=== PATIENT | female | born 1940 | race Caucasian/White ===

== ENCOUNTER 2016-06-13 14:11 | Observation (INO) | payer MEDICARE, OTHER ==
[2016-06-13] VITALS (9 sets, daily range): BP systolic 111–140; BP diastolic 42–99; PULSE 70–78; RESP 15–19; O2SAT 82–98
[~2016-06-13] VITALS: Ht 167.6 cm; Wt 94.3 kg
[~2016-06-13 14:11] MED LIST: ALBU8.5H2 INHALATION; DILT30TA30 PO; DIPH50C PO; DULO20CA18 PO; FLUC150T48 PO; FLUT1DIS5 INHALATION; GABA-502 PO; HYDR4TAB PO; LEVO50TA6 PO; LISI-571 PO; MONT10TA23 PO; PRED-508 PO; TRAZ150T72 PO; WARF5TAB7 PO
--- NOTE | 2016-06-13 14:25 | ED.REPORT ---
HPI-Altered Mental Status Date of Service Jun 13, 2016 ED Provider: Ankur John MD Pt is a 75 y.o. female with a hx of COPD, CHF, DM, and A-fib who presents to the ED via EMS from [facility] with altered mental status onset unclear. Staff described the pt as increasingly "sleepy". Pt is on numerous sedating medications including a Fentanyl patch, PRN Dilaudid, diphenhydramine, hydroxyzine, and trazodone. The Fentanyl patch that the pt is currently wearing has been on for three days. The pt states that her medications are handled by [facility] staff and denies any recent medication changes. She therefore does not believe that medication mistakes or noncompliance are involved in her condition. Pt is slow to respond to questions and when asked if she is in pain she states her right hip hurts, however she describes this pain as chronic. Pt is a poor historian due to her current mental status. Nursing Notes Stated Complaint: ALTERED LOC Chief Complaint: Neuro Symptoms/ Deficits Nursing Notes Reviewed: Yes Allergies: Coded Allergies: methocarbamol (Verified Allergy, Unknown, BREAK OUT IN HIVES AND ITCH ALL OVER, 08/02/15) ipratropium (Verified Adverse Reaction, Mild, dry mouth, 08/02/15) Scheduled Diltiazem (Cardizem) 30 Mg Tablet 30 MG PO ACHS Duloxetine (Duloxetine) 20 Mg Capsule.dr 20 MG PO BID Fluticasone/Salmeterol (Advair 500-50 Diskus) 1 Each Disk.w.dev 1 PUFF INHALATION BID Gabapentin (Gabapentin) 300 Mg Capsule 600 MG PO QAM Gabapentin (Gabapentin) 300 Mg Capsule 1,200 MG PO HS Levothyroxine (Levothyroxine) 50 Mcg Tablet 50 MCG PO DAILY Lisinopril (Lisinopril) 5 Mg Tablet 2.5 MG PO DAILY Montelukast (Montelukast) 10 Mg Tablet 10 MG PO DAILY Prednisone (Deltasone) 20 Mg Tablet 60 MG PO DAILY Take 3 tablets PO daily x 3 days, then Take 2.5 tablets PO daily x 5 days, then Take 2 tablets PO daily x 5 days, then Take 1.5 tablets PO daily x 5 days, then Take 1 tablet PO daily x 5 days, then Take 0.5 tablet PO daily x 5 days, then STOP Trazodone (Trazodone) 150 Mg Tablet 150 MG PO HS Warfarin Sodium (Warfarin Sodium) 5 Mg Tablet 5 MG PO DAILY Scheduled PRN Albuterol HFA (Proair HFA) 8.5 Gm Hfa.aer.ad 2 PUFFS INHALATION Q4H PRN PRN For Shortness of Breath Diphenhydramine Hcl (Benadryl) 50 Mg Capsule 100 MG PO BID PRN PRN For Congestion Fluconazole (Diflucan) 150 Mg Tablet 150 MG PO DAILY PRN PRN rash Hydromorphone (Hydromorphone) 4 Mg Tablet 4 MG PO BID PRN PRN Pain General Time Seen by MD: 14:17 Chief Complaint Decreased alertness Hx Obtained From: Patient Unable to Obtain Hx: Patient condition, Mental status Arrived By: Ambulance Sudden in Onset?: No Onset Occurred: Onset unknown Progression since Onset: Gradually worsening Recent Healthcare: No recent hospitalization, Recent doctor visit Past Medical History Past Medical History COPD A-fib Asthma Pneumonia Hiatal hernia UTI Reports: Congestive heart failure, Diabetes mellitus Past Surgical History Trigger finger release Cardiac ablation/cardioversion Reports: Hysterectomy Smoking History Former Smoker (quit 20 years ago) Social History Alcohol Use: 1-3 per week (1 glass of wine/week) Drug Use: Denies drug use Other Social History: Occupation lives in [facility] Ambulatory Status Independent Review of Systems Unable to Obtain ROS Patient condition, Mental status Constitutional: Reports: Lethargy Psychiatric: Reports: Change mental status Complete sys rev & neg: except as marked. Musculoskeletal: Reports: Joint pain (Right hip) Physical Exam Initial Vital Signs Vital Signs (First) Date Time Temp Pulse Resp B/P Pulse Ox O2 Delivery O2 Flow Rate FiO2 06/13/16 14:32 36.9 75 19 111/46 97 Nasal Cannula 4 Initial VS: Reviewed General/Constitutional: Well appearing, Well developed, Well hydrated, Well nourished, Not toxic appearing Alertness: Positive: Somnolent Slow to respond Poor historian Head / Eyes: Atraumatic, Normocephalic, PERRL (3mm) Neck: Atraumatic Respiratory / Chest: Atraumatic, No respiratory distress Wheezing / Retractions: Positive: Wheeze insp/exp diffuse Cardiovascular: Heart rate NL, Regular rhythm, Heart sounds NL Neurologic: Oriented X3 Mental Status: Positive: Somnolent No facial droop Abdomen: Atraumatic, Soft mild to moderate diffuse abdominal tenderness Interpretation & Diagnostics Lab Results Interpretation Result Diagram: 06/13/16 1430 06/13/16 1430 Test 06/13/16 14:30 06/13/16 14:55 06/13/16 15:10 White Blood Count 13.7th/mm3 (3.8-10.1) Red Blood Count 5.93mil/mm3 (3.90-5.20) Hemoglobin 13.7g/dL (12.0-15.6) Hematocrit 46.5% (35.0-46.0) Mean Corpuscular Volume 78.4fL (81-100) Mean Corpuscular Hemoglobin 23.1pg (27.0-35.0) Mean Corpuscular Hemoglobin Concent 29.5% (32.0-37.0) Red Cell Distribution Width 21.0% (12.3-15.4) Platelet Count 724bil/L (150-400) Neutrophils (%) (Auto) 77.1% (40-74) Lymphocytes (%) (Auto) 11.7% (14-46) Monocytes (%) (Auto) 7.4% (4-12) Eosinophils (%) (Auto) 2.6% (0-5) Basophils (%) (Auto) 0.9% (0-3) Prothrombin Time 22.7sec (8.1-12.5) Prothromb Time International Ratio 2.09ratio Sodium Level 138mEq/L (134-144) Potassium Level 5.0mEq/L (3.5-5.2) Chloride Level 97mEq/L (97-108) Carbon Dioxide Level 28mmol/L (18-29) Blood Urea Nitrogen 23mg/dL (8-27) Creatinine 0.79mg/dL (0.57-1.00) Estimat Glomerular Filtration Rate 101mL/min (>59) Glucose Level 111mg/dL (60-99) Calcium Level 9.2mg/dL (8.5-10.1) Total Bilirubin 0.2mg/dL (0.0-1.2) Aspartate Amino Transf (AST/SGOT) 10U/L (0-50) Alanine Aminotransferase (ALT/SGPT) 5U/L (0-32) Alkaline Phosphatase 136U/L (25-165) Total Protein 7.0g/dL (6.4-8.4) Albumin 4.1g/dL (3.4-5.0) Urine Color Yellow (YELLOW) Urine Appearance Hazy (CLEAR,HAZY) Urine pH 5.0 (5.0-8.0) Urine Specific [place] 1.030 (1.003-1.035) Urine Protein Negativemg/dL (NEG,TRACE) Urine Glucose (UA) Negativemg/dL (NEGATIVE) Urine Ketones Negativemg/dL (NEGATIVE) Urine Occult Blood Negative (NEGATIVE) Urine Nitrite Negative (NEGATIVE) Urine Bilirubin Negative (NEGATIVE) Urine Urobilinogen Normalmg/dL (NORMAL) Urine Leukocyte Esterase Negative (NEGATIVE) Urine RBC 0-2/hpf (0-2) Urine WBC 0-5/hpf (0-5) Urine Epithelial Cells Occasional/hpf (NONE-MOD) Urine Crystals None seen (NONE SEEN) Urine Bacteria Few/hpf (NONE-FEW) Urine Hyaline Casts Occasional/lpf (NONE) Urine Granular Casts None seen (NONE SEEN) Urine Waxy Casts None seen (NONE SEEN) Urine Red Blood Cell Casts None seen (NONE SEEN) Urine White Blood Cell Casts None seen (NONE SEEN) Urine Mucus Present (None Seen) Urine Trichomonas None seen (NONE SEEN) Urine Yeast None (NONE SEEN) Urinalysis Comment None Urine Culture Reflexed Not indicated Ammonia 17ug/dL (18-53) ECG Interpretation ECG Interpretation: Prolonged NC RBBB No acute change Time: 15:02 Interpreted by: ED physician Normal ECG Interpretation: Normal rate (79), Normal sinus rhythm Drug Screen / Level Interp Urine positive opiate, Urine positive THC X-Ray Chest Interpretation Chest Xray Interpretation: IMPRESSION: Mild increased pulmonary vascularity. Dictated by: Adriane Hodges M.D. on 06/13/2016 at 15:45 Approved by: Adriane Hodges M.D. on 06/13/2016 at 15:46 Interpretation / Wet Read by: Interpret - Radiologist CT Head Interpretation IMPRESSION: 1. No acute intracranial process. 2. Moderate atrophy and chronic microvascular ischemic changes. Dictated by: Adriane Hodges M.D. on 06/13/2016 at 15:54 Approved by: Adriane Hodges M.D. on 06/13/2016 at 15:55 Interpretation / Wet Read by: Interpret - Radiologist Re-Eval/Medical Decision Med Decision/Clinical Course 75 year old with altered mental status. On multiple sedating meds, nothing is new and she does not self-administer meds. Had a fentalnyl patch on on arrival, it was 3 days old, there was no other patch and we removed the one she had. Thrombocytosis has been seen before, has a mild leukocytosis also. Elected not to give narcan, do not want to precipitate withdrawal. Abd tender but mildly, imaged with CT given ALOC. CT pending at present, will admit to hospitalist for obs unless CT of abd suggests need for other treatment. Source of Hx: Old records Re-Evaluation/Progress : Time of Eval: 16:56 Patient Status: Condition improved Re-Evaluation/Progress Note: Pt rechecked, who is resting comfortably and more alert. Additional history and physical exam are obtained. The pt denies pain at this time but her abdomen is tender on physical exam. She is informed of her lab results and radiology and the need for CT and possible admission are discussed. Consultation : Referral / Consult Name: Gilberto Carlson MD Consulted With: Hospitalist Call Returned at: 17:40 [employer] Art Teacher: Agrees with eval, Agrees with plan, Accepts admit Note: Spoke with Dr. Carlson, hospitalist, regarding pt's case. Dr. Carlson agrees with the evaluation and agrees to admit the pt. Counseled Regarding: Diagnosis, Lab results, Need for admission Patient Discharge & Departure Impression: Primary Impression: Altered mental status Altered mental status type: unspecified Qualified Code: R41.82 - Altered mental status, unspecified Disposition: ADMITTED TO HOSPITAL Discharge Condition All VS Reviewed: Yes Condition: Improved Referrals: Jasen Pepper MD (PCP) Ghassan Attestation Portions of this note were transcribed by Susan Ray. Dr. Dora Gardiner personally performed the history, physical exam and medical decision-making; I reviewed and confirmed the accuracy of the information in the transcribed note. Signed by: Ghassan Staton, 06/13/16 and 1648 Portions of this note were transcribed by Radha Marte. IDr. John personally performed the history, physical exam and medical decision-making; I reviewed and confirmed the accuracy of the information in the transcribed note. Signed by: Ghassan Branch, 06/13/16 and 1743. copies to: Jasen Pepper MD, Donald L MD Jun 13, 2016 14:25 SUSAN RAY Jun 13, 2016 14:34 RADHA MARTE Jun 13, 2016 17:02
[2016-06-13] MEDS ORDERED: Albuterol-Ipratropium 3 mL Inhalation Solution NEB ONE (14:30)
[2016-06-13 15:04] LABS: BASOPHILS % (AUTO) 0.9 % (0-3); EOSINOPHILS % (AUTO) 2.6 % (0-5); MONOCYTES % (AUTO) 7.4 % (4-12); Mean Corpuscular Hemoglobin 23.1 pg (27.0-35.0); Mean Corpuscular Volume 78.4 fL (81-100); NEUTROPHILS % (AUTO) 77.1 % (40-74); Platelet Count 724 bil/L (150-400)
[2016-06-13 15:11] LABS: APPEARANCE,URINE HAZY (CLEAR,HAZY); COLOR,URINE YELLOW (YELLOW); OCCULT BLOOD,URINE NEGATIVE (NEGATIVE); UROBILINOGEN,URINE NORMAL (NORMAL)
[2016-06-13 15:18] LABS: INR 2.09 ratio
--- NOTE | 2016-06-13 15:48 | DRSVH ---
PROCEDURE: X-RAY CHEST ONE VIEW, PORTABLE ([id number]) INDICATIONS: altered mental status TECHNIQUE: One view of the chest was acquired. COMPARISON: [facility], CR, XR CHEST 2VW, 07/11/2015, 10:47. FINDINGS: Surgical changes and devices: None. Lungs and pleura: No pleural effusions or pneumothorax. Mild increased pulmonary vascularity is pres ent. Mediastinum: Mediastinal contours appear normal. Heart size is normal. Bones and chest wall: No suspicious bony lesions. Overlying soft tissues appear unremarkable. IMPRESSION: Mild increased pulmonary vascularity. Dictated by: Adriane Hodges M.D. on 06/13/2016 at 15:45 Approved by: Adriane Hodges M.D. on 06/13/2016 at 15:46
--- NOTE | 2016-06-13 15:57 | DRSVH ---
PROCEDURE: CT BRAIN WITHOUT CONTRAST ([id number]) INDICATIONS: altered mental status TECHNIQUE: Noncontrast 4.5 mm thick angled axial sections acquired from the foramen magnum to the vertex, with c oronal reformats. COMPARISON: None. FINDINGS: Image quality: Excellent. CSF spaces: Basal cisterns are patent. No extra-axial fluid collections. The ventricles are symmet cayla in size and shape. Brain: No intracranial bleeds or masses. There is cerebral volume loss for age, with resultant vent ricular and sulcal prominence. There are periventricular and deep white matter chronic small vessel ischemic changes. There is intracranial internal carotid artery atherosclerosis. Skull and face: Calvarium and visualized facial bones appear intact, without suspicious lesions. Sinuses: Visualized sinuses and mastoids are clear. IMPRESSION: 1. No acute intracranial process. 2. Moderate atrophy and chronic microvascular ischemic changes. Dictated by: Adriane Hodges M.D. on 06/13/2016 at 15:54 Approved by: Adriane Hodges M.D. on 06/13/2016 at 15:55
[2016-06-13] MEDS ORDERED: IPRA4AER IH (17:49)
[2016-06-13] MEDS ORDERED: DILT180C83 PO (17:50)
[2016-06-13] MEDS ORDERED: DOCU-41 PO (17:51)
[2016-06-13] MEDS ORDERED: FENT-2 TRANSDERM (17:53)
[2016-06-13] MEDS ORDERED: [UNRECOGNIZED DRUG - CODE] PO (17:54)
[2016-06-13] MEDS ORDERED: NYST15PO5 TOPICAL (17:54)
--- NOTE | 2016-06-13 17:55 | DRSVH ---
PROCEDURE: CT ABDOMEN AND PELVIS WITH CONTRAST ([id number]) INDICATIONS: altered mental status, abd tenderness TECHNIQUE: After the administration of intravenous contrast, 5 mm thick sections acquired from the diaphragm to the symphysis. 5 mm coronal and sagittal reformats were acquired. For radiation dose reduction, the following was used: automated exposure control, adjustment of mA and/or kV according to patient siz e. COMPARISON: None. FINDINGS: Image quality: Excellent. ABDOMEN: Lung bases: 20 mm AP by 12 mm transverse spiculated nodular opacity is noted in the right lower lobe. No priors are available for comparison. Solid organs: Liver and spleen are normal in size. Gallbladder demonstrates multiple luminal stones without wall thickening. Biliary system is non dilated. Pancreas enhances normally. No adrenal nod ules. Kidneys demonstrate normal size and enhancement, without hydronephrosis. Peritoneum and bowel: Bowel loops demonstrate normal wall thickness and caliber. No free fluid or a ir. Moderate stool is present without obstruction. Nodes and vessels: No retroperitoneal or mesenteric adenopathy by size criteria. Aorta and inferior vena cava are normal in size. Miscellaneous: No ventral hernias. PELVIS: Genitourinary: Bladder is collapsed limiting evaluation in addition, it is not well characterized se condary to metallic streak artifact from right hip arthroplasty. Miscellaneous: No inguinal hernias or adenopathy. Bones: No suspicious bony lesions. No vertebral body compression fractures. IMPRESSION: 1. Spiculated nodular opacity within the right lobe as above. No priors are available for comparison. Overall morphology is concerning for neoplasm. If prior studies become available for comparison, an addendum will be issued. Otherwise, consideration for PET scan or biopsy is recommended. 2. Prominent stool most suggestive of constipation. No obstruction. 3. Cholelithiasis without imaging evidence of cholecystitis. Dictated by: Adriane Hodges M.D. on 06/13/2016 at 17:44 Approved by: Adriane Hodges M.D. on 06/13/2016 at 17:54
[2016-06-13] MEDS ORDERED: METF500T4 PO (17:57)
[2016-06-13] MEDS ORDERED: MONT10TA23 PO (17:58)
[2016-06-13] MEDS ORDERED: POLY17PO6 PO (17:59)
[2016-06-13] MEDS ORDERED: BACI28.4 TP (18:00)
[2016-06-13] MEDS ORDERED: HYDR-656 PO (18:02)
[2016-06-13] MEDS ORDERED: DIPH25CA6 PO (18:06)
[2016-06-13] MEDS ORDERED: Alum-Mag Hydrox-Simeth 30 mL Suspension PO PRN (18:15)
[2016-06-13] MEDS ORDERED: Ondansetron 2 mg/mL 2 mL Inj IVPUSH PRN (18:15)
[2016-06-13] MEDS ORDERED: Polyethylene Glycol (PEG) 17 Gm Powder PO PRN (18:15)
[2016-06-13] MEDS ORDERED: NYSTATIN TOPICAL PRN (18:20)
[2016-06-13] MEDS ORDERED: Albuterol HFA 60 Puff 8 Gm Inhaler INHALATION PRN (18:20)
[2016-06-13] MEDS ORDERED: Albuterol-Ipratropium 3 mL Inhalation Solution NEB PRN (18:25)
--- NOTE | 2016-06-13 18:39 | PCM.HPMED ---
Subjective Date of Service Jun 13, 2016 Primary Provider: Admitting Physician: Gilberto Carlson MD Primary Care Physician: Jasen Pepper MD Attending Physician: Gilberto Carlson MD Admit Status: From the Emergency Department, 23-Hour Observation Chief Complaint: Altered mental status/1 day History of Present Illness: Thelma is a 75-year-old lady with past medical history of COPD/asthma, DM, and A- fib on warfarin, osteoarthritis of right hip was brought in from [facility] due to altered mental status of 1 day. Assisted living staff noted the patient is sleepy but arousable the whole day which prompted referral to emergency room. Patient has osteoarthritis mainly on the right hip status post replacement and she takes multiple narcotics and sedating medications for the pain. Her medication list includes Fentanyl patch, PRN Dilaudid, diphenhydramine, hydroxyzine, and trazodone. In the emergency room patient was lethargic but arousable. Pupils slightly constricted. Fentanyl patch which was on day 3 was removed by ED. Urine tox positive for marijuana, opiates, oxycodone. CT brain negative. Urinalysis unremarkable. CT of abdomen negative for acute pathology except constipation. CT abdomen done due to some tenderness on lower abdomen on exam. Patient denies fever. Patient states she has been having worsening of cough for the last 1 week. She does not use oxygen. Review of Systems: Unable to obtain due to mental status Allergies Coded Allergies: Cephalosporins (Verified Allergy, Mild, 06/13/16) Proton Pump Inhibitors (Verified Allergy, Mild, 06/13/16) chlorhexidine (Verified Allergy, Mild, 06/13/16) saccharin (Verified Allergy, Mild, 06/13/16) methocarbamol (Verified Allergy, Unknown, BREAK OUT IN HIVES AND ITCH ALL OVER, 08/02/15) ipratropium (Verified Adverse Reaction, Mild, dry mouth, 08/02/15) Home Medications Diltiazem (Cardizem) 180 Mg ER Tablet HS Duloxetine (Duloxetine) 20 Mg Capsule.dr 20 MG PO HS Fluticasone/Salmeterol (Advair 500-50 Diskus) 1 Each Disk.w.dev 1 PUFF INHALATION BID Fentanyl 75mcg Q3d Gabapentin (Gabapentin) 300 Mg Capsule 600 MG PO QAM ( ?300mg tid) Gabapentin (Gabapentin) 300 Mg Capsule 1,200 MG PO HS Levothyroxine (Levothyroxine) 50 Mcg Tablet 50 MCG PO DAILY Lisinopril (Lisinopril) 5 Mg Tablet 2.5 MG PO DAILY Montelukast (Montelukast) 10 Mg Tablet 10 MG PO DAILY Trazodone (Trazodone) 150 Mg Tablet 150 MG PO HS Warfarin Sodium (Warfarin Sodium) 5 Mg Tablet 5 MG PO DAILY Scheduled PRN Albuterol HFA (Proair HFA) 8.5 Gm Hfa.aer.ad 2 PUFFS INHALATION Q4H PRN PRN For Shortness of Breath Diphenhydramine Hcl (Benadryl) 50 Mg Capsule 100 MG PO BID PRN PRN For Congestion Fluconazole (Diflucan) 150 Mg Tablet 150 MG PO DAILY PRN PRN rash Hydromorphone (Hydromorphone) 4 Mg Tablet 4 MG PO BID PRN PRN Pain PMH per prior H&P COPD A-fib Diabetes mellitus type II Obstructive sleep apnea 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 patient is lying comfortably in hospital bed, lethargic HEENT: Head is normocephalic atraumatic, Pupils equal and reactive, extraocular movements intact, Lungs bibasilar crackles and rhonchi Heart regular rate and rhythm without murmurs gallops or rubs Abdomen mild RUQ abdominal tenderness Extremities +1 pedal edema Psych lethargic and not oriented to person and time. Oriented to place Neuro cranial nerves II through XII are grossly intact. Motor grossly intact. Unable to lift right leg due to right hip pain Lymph: There is no lymphadenopathy appreciated in the cervical supra infraclavicular regions : no lopez Lab and Diagnostics Result Diagram: 06/13/16 1430 06/13/16 1430 X-Rays, CTs and MRIs PROCEDURE: CT ABDOMEN AND PELVIS WITH CONTRAST ([id number]) INDICATIONS: altered mental status, abd tenderness IMPRESSION: 1. Spiculated nodular opacity within the right lobe as above. No priors are available for comparison. Overall morphology is concerning for neoplasm. If prior studies become available for comparison, an addendum will be issued. Otherwise, consideration for PET scan or biopsy is recommended. 2. Prominent stool most suggestive of constipation. No obstruction. 3. Cholelithiasis without imaging evidence of cholecystitis. Dictated by: Adriane Hodges M.D. on 06/13/2016 at 17:44 PROCEDURE: CT BRAIN WITHOUT CONTRAST ([id number]) INDICATIONS: altered mental status IMPRESSION: 1. No acute intracranial process. 2. Moderate atrophy and chronic microvascular ischemic changes. Dictated by: Adriane Hodges M.D. on 06/13/2016 at 15:54 Assessment & Plan Thelma is a 75-year-old lady with past medical history of COPD/asthma, DM, and A- fib on warfarin, osteoarthritis of right hip was brought in from [facility] due to altered mental status # Altered mental status,acute ,poa -Likely due to narcotics and sedative medications. -Fentanyl patch in the emergency room. Hold narcotic pain medication for now -CT brain negative. Urinalysis unremarkable. Chest x-ray no infiltrates -NS at 100ml/h -Patient's mentation improving per ED. No need for Narcan -No lateralizing sign. will hold off MRI -Patient's COPD does not seem to be advanced. will hold off ABG. Will consider ABG and BiPAP if mentation worsens # Chronic COPD/asthma, no exacerbation -Continue home inhalers # Atrial fibrillation on warfarin -Continue anticoagulation. CT brain negative for any bleed # Right lower lobe nodule in lung concerning for cancer -Dedicated CT chest with contrast outpatient #Diabetes -Sliding-scale for now #Osteoarthritis -Tylenol only for now Full code per patient Observation status Possible discharge tomorrow if continues to improve Gilberto Carlson MD Jun 13, 2016 18:39
--- NOTE | 2016-06-13 19:20 | PCM.PHAPRO ---
Progress Date of Service: Jun 13, 2016 Altered mental status/1 day Dx: Afib PMH: COPD/asthma, DM, OA, CHF OPERATIONS SUPPORT MANAGER dose: 5mg daily INR goal 2-3 INR 2.09 (at goal) give warfarin 5mg tonight per MD INR AM labs on 06/14 per pharmacy Caesar Agarwal PharmD Caesar Agarwal Jun 13, 2016 19:20
--- NOTE | 2016-06-13 19:35 | NUR ---
Admit MPC from ED Pt admitted on stretcher at 1835, A&O, denies pain. Pt oriented to room and facility. Denied having questions. VSS. Pt states to be on 3L of oxygen at home. Currently on 2L via MD sating 93% Bed in low position, upper rails up, call light in reach.
[2016-06-13] MEDS ORDERED: Albuterol 2.5 mg/3 mL Inhalation Solution NEB PRN (19:40)
[2016-06-13] MEDS: 0.9% Sodium Chloride 1,000 ML IV SCH (20:24)
[2016-06-13] MEDS: Diltiazem CD 180 mg ER24 Capsule PO SCH (20:25)
[2016-06-13] MEDS: DULoxetine 20 mg DR Capsule PO SCH (20:27)
[2016-06-13] MEDS: Albuterol-Ipratropium 120 Spray 4 Gm Inhaler INHALATION SCH (20:33)
[2016-06-14] VITALS (12 sets, daily range): BP systolic 112–166; BP diastolic 56–83; PULSE 59–97; RESP 16–20; O2SAT 90–97
[2016-06-14] MEDS: Albuterol-Ipratropium 120 Spray 4 Gm Inhaler INHALATION SCH ×4 (06:07→20:48)
[2016-06-14 07:09] LABS: BASOPHILS % (AUTO) 0.9 % (0-3); EOSINOPHILS % (AUTO) 5.2 % (0-5); MONOCYTES % (AUTO) 11.5 % (4-12); Mean Corpuscular Hemoglobin 23.4 pg (27.0-35.0); Mean Corpuscular Volume 75.9 fL (81-100); NEUTROPHILS % (AUTO) 57.2 % (40-74); Platelet Count 626 bil/L (150-400)
--- NOTE | 2016-06-14 07:20 | NUR ---
Mentation/Respiration,O2 Mental status appears improved, pt alert and orientedx3 throughout the night, answer questions properly, cooperative with care. Mild SOB at rest, no acute distress. Decreased lung sounds bilaterally, some wheezes posteriorly. NEB prn administeredx1 by RT this am. Hx COPD, Home O2 3l. Desat to low 80s briefly on O2 2l per nc while sleeping with mouth open, switch to Oxymask, SPO2 91-96% on O2 2l. [employer]BITR[employer]ARING OFFICE monitoring.
[2016-06-14 07:23] LABS: INR 2.01 ratio
[2016-06-14 07:43] LABS: Magnesium 2.1 mg/dL (1.6-2.6)
--- NOTE | 2016-06-14 08:01 | PCM.PHAPRO ---
Progress Date of Service: Jun 14, 2016 Warfarin dosing Date Jun 14-May INR 2.09. 2.01 INR change Warf Dose 5mg 5mg A/ INR is therapeutic today. P/ Continue with same dose of warfarin 5mg today and re-evaluate tomorrow with AM labs. Juan Del Rio Jun 14, 2016 08:01
[2016-06-14] MEDS: Polyethylene Glycol (PEG) 17 Gm Powder PO SCH (08:58)
[2016-06-14] MEDS: 0.9% Sodium Chloride 1,000 ML IV SCH (08:58)
[2016-06-14] MEDS: Bacitracin Ointment Packet TOPICAL SCH (09:00)
--- NOTE | 2016-06-14 12:36 | NUR ---
STEPHANY explained and signed. Copy of STEPHANY and Medicare self administered medication information provided to pt.
--- NOTE | 2016-06-14 13:50 | NUR ---
Social Work-initial assessment/Readiness for Discharge: Data:See initial assessment. Pt is a 75 y/o female who was admitted on 06/13/16 for AMS per H&P. Pt's insurance is [employer] and [employer] [place] PCP is Jasen Pepper MD. EMR Reviewed. Pt's readmission score is 2-no risk. Per morning rounds pt's condistion is improving and she is likely to discharge SW met with pt at bedside to discuss discharge planning, SW role explained. Pt is alert and oriented x3. Pt resides at [facility] where pt remains independent with basic ADLs. Pt uses a 4ww at baseline and does not drive. Pt has history with HH, she cannot recall which agency. Pt has history with [facility]. Pt has not completed DPOA/advanced directive and SW provided information to review and complete. Pt has no half-way care or VA benefits. Pt's sister to provide transport home at discharge. SW contacted [facility] to update them and they stated that [facility] pt can return and they will not need to do bedside assessment if hospitalization is less than 72 hours. No needs assessed at this time. SW provided phone number and plan on white board in room. SW will continue to follow. Assessment:Pt who resides at [facility] and can return. Plan:Pt to likely discharge home to [facility] via POV. No needs assessed. SW will continue to follow. Addendum: 06/14/16 at 1359 by ARNOLD JAY Amended: Links added.
--- NOTE | 2016-06-14 14:42 | PCM.PNMED ---
Subjective Date of Service Jun 14, 2016 Subjective Patient alert and oriented 3 today. She states she does not know why she was transferred to the emergency room. She has some worsening of cough for the last 1 week. Denies fever. Exam Vital Signs Vital Sign - Last Date Time Temp Pulse Resp B/P Pulse Ox O2 Delivery O2 Flow Rate FiO2 06/14/16 12:47 36.4 82 20 166/71 91 Room Air 06/14/16 05:39 2.00 Intake and Output 06/13/16 06/13/16 06/14/16 Cumulative From/Thru 15:00 23:00 07:00 06/13/16 14:32 - 06/14/16 05:39 Intake Total 812 ml 812 ml Output Total 1000 ml 1000 ml Balance -188 ml -188 ml Intake Oral 200 ml 200 ml IV Total 612 ml 612 ml Output Urine Total 1000 ml 1000 ml Exam Gen. patient is lying comfortably in hospital bed, alert and oriented 3 HEENT: Head is normocephalic atraumatic, Pupils equal and reactive, extraocular movements intact, Lungs bibasilar crackles and rhonchi Heart regular rate and rhythm without murmurs gallops or rubs Abdomen no tenderness Extremities +1 pedal edema Psych lethargic and not oriented to person and time. Oriented to place Neuro cranial nerves II through XII are grossly intact. Motor grossly intact. Unable to lift right leg due to right hip pain Lymph: There is no lymphadenopathy appreciated in the cervical supra infraclavicular regions : lopez placed yesterday. will remove IVs and Medications Medications Reviewed: Medications were reviewed in detail Lab and Diagnostics Result Diagram: 06/14/16 0706/14/16 0701 X-Rays, CTs and MRIs PROCEDURE: CT ABDOMEN AND PELVIS WITH CONTRAST ([id number]) INDICATIONS: altered mental status, abd tenderness IMPRESSION: 1. Spiculated nodular opacity within the right lobe as above. No priors are available for comparison. Overall morphology is concerning for neoplasm. If prior studies become available for comparison, an addendum will be issued. Otherwise, consideration for PET scan or biopsy is recommended. 2. Prominent stool most suggestive of constipation. No obstruction. 3. Cholelithiasis without imaging evidence of cholecystitis. Dictated by: Adriane Hodges M.D. on 06/13/2016 at 17:44 PROCEDURE: CT BRAIN WITHOUT CONTRAST ([id number]) INDICATIONS: altered mental status IMPRESSION: 1. No acute intracranial process. 2. Moderate atrophy and chronic microvascular ischemic changes. Dictated by: Adriane Hodges M.D. on 06/13/2016 at 15:54 Assessment & Plan Thelma is a 75-year-old lady with past medical history of COPD/asthma, DM, and A- fib on warfarin, osteoarthritis of right hip was brought in from [facility] due to altered mental status # Altered mental status,acute ,poa. Resolved -Likely due to narcotics and sedative medications. -Fentanyl patch removed in the emergency room. Hold narcotic pain medication for now. restarted gabapentin today -CT brain negative. Urinalysis unremarkable. Chest x-ray no infiltrates -initially treated with NS at 100ml/h -Patient's mentation improved. No need for Narcan -No lateralizing sign. will hold off MRI -Patient's COPD does not seem to be advanced. will hold off ABG. Will consider ABG and BiPAP if mentation worsens # Chronic COPD/asthma, no exacerbation -Continue home inhalers # Atrial fibrillation on warfarin -Continue anticoagulation. CT brain negative for any bleed # Right lower lobe nodule in lung concerning for cancer -Dedicated CT chest with contrast outpatient #Diabetes -Sliding-scale for now #Osteoarthritis -Tylenol and gabapentin only for now Full code per patient Observation status Possible discharge tomorrow if continues to improve VTE Mechanical Devices: Intermittant Pneumatic CD, Venous Foot Pump Gilberto Carlson MD Jun 14, 2016 14:42
--- NOTE | 2016-06-14 19:05 | NUR ---
IV infiltrated IV infiltrated at 1630. Notified MD. MACHADO said if no IV meds for tonight, can leave IV out for possible D/C tomorrow.
[2016-06-14] MEDS: Diltiazem CD 180 mg ER24 Capsule PO SCH (20:49)
[2016-06-14] MEDS: DULoxetine 20 mg DR Capsule PO SCH (20:49)
[2016-06-15 01:07] VITALS: BP 161/77; PULSE 93; RESP 18; O2SAT 93
[2016-06-15 04:38] VITALS: BP 166/76; PULSE 73; RESP 20; O2SAT 94
[2016-06-15] MEDS: Bacitracin Ointment Packet TOPICAL SCH (09:03)
[2016-06-15] MEDS: Albuterol-Ipratropium 120 Spray 4 Gm Inhaler INHALATION SCH (09:04)
[2016-06-15] MEDS: Polyethylene Glycol (PEG) 17 Gm Powder PO SCH (09:04)
[2016-06-15 10:04] VITALS: BP 149/89; PULSE 87; RESP 18; O2SAT 94
[2016-06-15 10:17] VITALS: PULSE 92
--- NOTE | 2016-06-15 11:16 | PCM.DIMED ---
Discharge Instructions Date of Service June 15, 2016 Dates of Hospitalization Jun 13, 2016 at 17:49 Discharge Diagnosis Discharge Diagnosis # Altered mental status,acute ,poa. Resolved -Likely due to narcotics and sedative medications. -Fentanyl patch removed in the emergency room. Condition has improved - On discharge, it is recommended you discontinue use of Fentayl patch, using only as needed oral pain medications. # Chronic COPD/asthma, no exacerbation -Continue home inhalers # Atrial fibrillation on warfarin -Continue anticoagulation. CT brain negative for any bleeding of head # Right lower lobe nodule in lung concerning for cancer -Dedicated CT chest with contrast outpatient #Diabetes #Osteoarthritis -Tylenol and gabapentin for pain first - Then Dilaudid pills if pain does not respond. Diet No restrictions Activity Limited until seen by PCP Call your provider Other (recurrent altered mental status/confusion) Patient Instructions Follow-up Provider: Jasen Pepper MD Follow-up with PCP in: 1 week Flash Melendez DO June 15, 2016 11:16
--- NOTE | 2016-06-15 11:22 | NUR ---
SW - Discharge Data: Pt is on day 2 of hospitalization for AMS. EMR reviewed. Per EMR pt is medically cleared for discharge back to [facility], is up and independent in room. Sister will provide transport home via POV. SW met with pt and sister at bedside to confirm discharge plan. All updated and agreeable to plan. No further needs assessed. Assessment: Pt who resides at [facility] Plan: Pt to discharge home via POV. No further needs assessed. LEONARDO Ferrell
--- NOTE | 2016-06-15 11:24 | PCM.DC.MED ---
Discharge Summary Date of Service June 15, 2016 Dates of Hospitalization Date of Hospital Admission Jun 13, 2016 at 17:49 Date of Discharge: June 15, 2016 Providers: Admitting Physician: Gilberto Carlson MD Primary Care Physician: Jasen Pepper MD Attending Physician: Gilberto Carlson MD Diagnosis at Time of Discharge Diagnosis at Time of Discharge # Altered mental status,acute ,poa. Resolved -Likely due to narcotics and sedative medications. -Fentanyl patch removed in the emergency room. Condition has improved - On discharge, it is recommended you discontinue use of Fentayl patch, using only as needed oral pain medications. # Chronic COPD/asthma, no exacerbation -Continue home inhalers # Atrial fibrillation on warfarin -Continue anticoagulation. CT brain negative for any bleeding of head # Right lower lobe nodule in lung concerning for cancer -Dedicated CT chest with contrast outpatient #Diabetes #Osteoarthritis -Tylenol and gabapentin for pain first - Then Dilaudid pills if pain does not respond. Procedures XRay, CTs & MRIs PROCEDURE: CT ABDOMEN AND PELVIS WITH CONTRAST ([id number]) INDICATIONS: altered mental status, abd tenderness IMPRESSION: 1. Spiculated nodular opacity within the right lobe as above. No priors are available for comparison. Overall morphology is concerning for neoplasm. If prior studies become available for comparison, an addendum will be issued. Otherwise, consideration for PET scan or biopsy is recommended. 2. Prominent stool most suggestive of constipation. No obstruction. 3. Cholelithiasis without imaging evidence of cholecystitis. Dictated by: Adriane Hodges M.D. on 06/13/2016 at 17:44 PROCEDURE: CT BRAIN WITHOUT CONTRAST ([id number]) INDICATIONS: altered mental status IMPRESSION: 1. No acute intracranial process. 2. Moderate atrophy and chronic microvascular ischemic changes. Dictated by: Adriane Hodges M.D. on 06/13/2016 at 15:54 Brief History Thelma is a 75-year-old lady with past medical history of COPD/asthma, DM, and A- fib on warfarin, osteoarthritis of right hip was brought in from [place] assisted living due to altered mental status of 1 day. Assisted living staff noted the patient is sleepy but arousable the whole day which prompted referral to emergency room. Patient has osteoarthritis mainly on the right hip status post replacement and she takes multiple narcotics and sedating medications for the pain. Her medication list includes Fentanyl patch, PRN Dilaudid, diphenhydramine, hydroxyzine, and trazodone. In the emergency room patient was lethargic but arousable. Pupils slightly constricted. Fentanyl patch which was on day 3 was removed by ED. Urine tox positive for marijuana, opiates, oxycodone. CT brain negative. Urinalysis unremarkable. CT of abdomen negative for acute pathology except constipation. CT abdomen done due to some tenderness on lower abdomen on exam. Patient denies fever. Patient states she has been having worsening of cough for the last 1 week. She does not use oxygen. Hospital Course # Altered mental status,acute ,poa. Resolved -Likely due to narcotics and sedative medications. -Fentanyl patch removed in the emergency room. Condition has improved - On discharge, it is recommended you discontinue use of Fentayl patch, using only as needed oral pain medications. # Chronic COPD/asthma, no exacerbation -Continue home inhalers # Atrial fibrillation on warfarin -Continue anticoagulation. CT brain negative for any bleeding of head # Right lower lobe nodule in lung concerning for cancer -Dedicated CT chest with contrast outpatient #Diabetes #Osteoarthritis -Tylenol and gabapentin for pain first - Then Dilaudid pills if pain does not respond. Exam Vital Signs (Last) Date Time Temp Pulse Resp B/P Pulse Ox O2 Delivery O2 Flow Rate FiO2 06/15/16 10:17 92 06/15/16 10:04 37.0 18 149/89 94 Room Air 06/14/16 05:39 2.00 Test 06/13/16 14:30 06/13/16 14:55 06/13/16 15:10 06/14/16 07:01 Procalcitonin 0.03ng/mL (0.00-0.08) Thyroid Stimulating Hormone (TSH) 1.990uIU/mL (0.450-4.500) Urine Color Yellow (YELLOW) Urine Appearance Hazy (CLEAR,HAZY) Urine pH 5.0 (5.0-8.0) Urine Specific Anderson 1.030 (1.003-1.035) Urine Protein Negativemg/dL (NEG,TRACE) Urine Glucose (UA) Negativemg/dL (NEGATIVE) Urine Ketones Negativemg/dL (NEGATIVE) Urine Occult Blood Negative (NEGATIVE) Urine Nitrite Negative (NEGATIVE) Urine Bilirubin Negative (NEGATIVE) Urine Urobilinogen Normalmg/dL (NORMAL) Urine Leukocyte Esterase Negative (NEGATIVE) Urine RBC 0-2/hpf (0-2) Urine WBC 0-5/hpf (0-5) Urine Epithelial Cells Occasional/hpf (NONE-MOD) Urine Crystals None seen (NONE SEEN) Urine Bacteria Few/hpf (NONE-FEW) Urine Hyaline Casts Occasional/lpf (NONE) Urine Granular Casts None seen (NONE SEEN) Urine Waxy Casts None seen (NONE SEEN) Urine Red Blood Cell Casts None seen (NONE SEEN) Urine White Blood Cell Casts None seen (NONE SEEN) Urine Mucus Present (None Seen) Urine Trichomonas None seen (NONE SEEN) Urine Yeast None (NONE SEEN) Urinalysis Comment None Urine Culture Reflexed Not indicated Ammonia 17ug/dL (18-53) White Blood Count 9.8th/mm3 (3.8-10.1) Red Blood Count 5.18mil/mm3 (3.90-5.20) Hemoglobin 12.1g/dL (12.0-15.6) Hematocrit 39.3% (35.0-46.0) Mean Corpuscular Volume 75.9fL (81-100) Mean Corpuscular Hemoglobin 23.4pg (27.0-35.0) Mean Corpuscular Hemoglobin Concent 30.8% (32.0-37.0) Red Cell Distribution Width 20.3% (12.3-15.4) Platelet Count 626bil/L (150-400) Neutrophils (%) (Auto) 57.2% (40-74) Lymphocytes (%) (Auto) 25.0% (14-46) Monocytes (%) (Auto) 11.5% (4-12) Eosinophils (%) (Auto) 5.2% (0-5) Basophils (%) (Auto) 0.9% (0-3) Sodium Level 137mEq/L (134-144) Potassium Level 5.4mEq/L (3.5-5.2) Chloride Level 100mEq/L (97-108) Carbon Dioxide Level 29mmol/L (18-29) Blood Urea Nitrogen 15mg/dL (8-27) Creatinine 0.47mg/dL (0.57-1.00) Estimat Glomerular Filtration Rate 185mL/min (>59) Glucose Level 99mg/dL (60-99) Calcium Level 8.7mg/dL (8.5-10.1) Magnesium Level 2.1mg/dL (1.6-2.6) Total Bilirubin 0.4mg/dL (0.0-1.2) Aspartate Amino Transf (AST/SGOT) 9U/L (0-50) Alanine Aminotransferase (ALT/SGPT) 5U/L (0-32) Alkaline Phosphatase 112U/L (25-165) Total Protein 5.6g/dL (6.4-8.4) Albumin 3.5g/dL (3.4-5.0) Test 06/15/16 11:10 General: Alert, Oriented X3, Cooperative Mouth: Mucous Membr Moist/[place] Cardiovascular: Other Extremities: No cyanosis/clubbing/edma bilat Neurological: Grossly Neurologically Intact Discharge Medications Discharge Medications Albuterol/Ipratropium (Combivent Respimat Inhal [place]) 120 Spr/4 Gm Inhaler 1 PUFF IH QID (Reported) Bacitracin (Bacitracin Ointment) 28.4 Gm Oint...g. 1 APPLIC TP DAILY (Reported) Diltiazem ER (Diltiazem ER) 180 Mg Cap.er.24h 180 MG PO HS (Reported) Docusate Sodium (Colace) 100 Mg Capsule 100 MG PO BID (Reported) Duloxetine (Duloxetine) 20 Mg Capsule.dr 20 MG PO HS (Reported) Gabapentin (Gabapentin) 300 Mg Capsule 300 MG PO TID (Reported) Levothyroxine (Levothyroxine) 50 Mcg Tablet 25 MCG PO DAILY (Reported) Lisinopril (Lisinopril) 5 Mg Tablet 2.5 MG PO DAILY Prescribed by: CLEO FRANCO MD Metformin (Metformin) 500 Mg Tablet 500 MG PO DAILY (Reported) Montelukast (Montelukast) 10 Mg Tablet 10 MG PO HS (Reported) Polyethylene Glycol 3350 (Miralax) 17 Gm Powd.pack 17 GM PO DAILY (Reported) Trazodone (Trazodone) 150 Mg Tablet 300 MG PO HS (Reported) Warfarin Sodium (Warfarin Sodium) 5 Mg Tablet 5 MG PO DAILY (Reported) As needed Albuterol HFA (Proair HFA) 8.5 Gm Hfa.aer.ad 2 PUFFS INHALATION Q4H PRN PRN For Shortness of Breath (Reported) Fluconazole (Diflucan) 150 Mg Tablet 150 MG PO DAILY PRN PRN rash Prescribed by: BRANDON OLIVO Hydromorphone (Hydromorphone) 4 Mg Tablet 4 MG PO Q4H PRN PRN Pain (Reported) Nystatin (Nystatin) 15 Gm Powder 1 APPLIC TOPICAL TID PRN PRN RASH (Reported) diphenhydrAMINE HCl (Benadryl) 25 Mg Capsule 25 MG PO q6 PRN PRN For Itching ( Reported) hydrOXYzine Hcl (HydrOXYzine Hcl) 25 Mg Tablet 25-50 MG PO Q4H PRN PRN For Itching (Reported) Followup Plan Disposition: Home to assisted living facility. Discharge Diet: No restrictions Discharge Activity: Limited until seen by PCP Follow-up Provider: Jasen Pepper MD Follow-up with PCP in: 1 week Time spent 40 minutes copies to: Jasen Pepper MD Vital Signs Vital Sign - Last Date Time Temp Pulse Resp B/P Pulse Ox O2 Delivery O2 Flow Rate FiO2 06/15/16 10:17 92 06/15/16 10:04 37.0 18 149/89 94 Room Air 06/14/16 05:39 2.00 Intake and Output 06/14/16 06/14/16 06/15/16 Cumulative From/Thru 15:00 23:00 07:00 06/13/16 14:32 - 06/15/16 06:17 Intake Total 475 ml 200 ml 1487 ml Output Total 2050 ml 1450 ml 4500 ml Balance -1575 ml -1250 ml -3013 ml Intake Oral 475 ml 200 ml 875 ml IV Total 612 ml Output Urine Total 2050 ml 1450 ml 4500 ml # Bowel Movements 1 1 IVs and Medications Medications Reviewed: Medications were reviewed in detail Lab and Diagnostics Result Diagram: 06/14/1670006/14/16700 Flash Melendez DO June 15, 2016 11:24
[2016-06-15 11:38] LABS: INR 2.23 ratio
--- NOTE | 2016-06-15 12:43 | NUR ---
discharge Patient discharge to [facility] with all belongings at 1214. Explained to patient when next medications are due and discharge instructions. Patient verbalized understanding. IV dc'd yesterday intact. Dc'd telemetry. Vitals stable. Patient left floor via wheelchair with no signs of distress.
== END 2016-06-15 12:13 | disposition home or self-care (01) ==
LOC: SED 14:11 → MPC 17:49
PROVIDERS: ADMIT Internal Medicine; ATTEND Internal Medicine
DX: R41.82 Altered mental status, unspecified (principal); J44.9 Chronic obstructive pulmonary disease, unspecified; J45.909 Unspecified asthma, uncomplicated; I48.91 Unspecified atrial fibrillation; R91.1 Solitary pulmonary nodule; E11.40 Type 2 diabetes mellitus with diabetic neuropathy, unspecified; I50.9 Heart failure, unspecified; M16.11 Unilateral primary osteoarthritis, right hip; G47.33 Obstructive sleep apnea (adult) (pediatric); Z96.641 Presence of right artificial hip joint; Z87.891 Personal history of nicotine dependence; Z79.84 Long term (current) use of oral hypoglycemic drugs; Z79.01 Long term (current) use of anticoagulants; Z79.51 Long term (current) use of inhaled steroids
CPT/HCPCS: 36415; 51702; 70450; 71010; 74177; 80048; 80053; 81000; 81002; 82140; 83735; 84145; 84443; 85025; 85610; 93005; 94664; 94799; 99285; G0378; J7030; J7620; Q9967

== ENCOUNTER 2016-08-05 12:09 | Inpatient (IN) | payer MEDICARE, OTHER ==
[~2016-08-05] VITALS: Ht 162.6 cm; Wt 90.7 kg
[~2016-08-05 12:09] MED LIST changes: +BACI28.4 TP; +DILT180C83 PO; -DILT30TA30 PO; +DIPH25CA6 PO; -DIPH50C PO; +DOCU-41 PO; -FLUT1DIS5 INHALATION; +HYDR-656 PO; +IPRA4AER IH; +METF500T4 PO; +NYST15PO5 TOPICAL; +POLY17PO6 PO; -PRED-508 PO
[2016-08-05 12:19] VITALS: BP 107/85; PULSE 103; RESP 23; O2SAT 98
[2016-08-05 12:46] LABS: BASOPHILS % (AUTO) 0.5 % (0-3)
[2016-08-05 12:49] LABS: MONOCYTES % (AUTO) 10.1 % (4-12); Mean Corpuscular Hemoglobin 23.8 pg (27.0-35.0); Mean Corpuscular Volume 80.8 fL (81-100); NEUTROPHILS % (AUTO) 81.1 % (40-74); Platelet Count 665 bil/L (150-400)
--- NOTE | 2016-08-05 12:50 | ED.REPORT ---
HPI-Dyspnea / Wheezing Date of Service Aug 05, 2016 ED Provider: Ramon Mullen DO Patient is a 75 year old female with a history of COPD, CHF, asthma and diabetes who presents to the ED via EMS initially due to an altered mental status. Per EMS, [facility] staff noticed that she was confused and when EMS arrived, she was found with low O2 sats. After a nebulizer treatment and 1mg of Narcan, her sats increased and she was able to talk to medics. During that time , the patient reported a productive cough with bloody sputum for the past couple of days. Medics also noted she was febrile, diaphoretic and having tremors even before the Narcan. Patient is on a Fentanyl patch and PRN Dilaudid , which is controlled by the [facility]. Prior to arrival to the ED, per EMS, the patient vomited and had wheezing in all garcia. Patient was hospitalized in May 2016 for similar symptoms and COPD exacerbation. Nursing Notes Stated Complaint: SHORTNESS OF BREATH Chief Complaint: Respiratory Complaints Nursing Notes Reviewed: Yes Allergies: Coded Allergies: Cephalosporins (Verified Allergy, Mild, 06/13/16) Proton Pump Inhibitors (Verified Allergy, Mild, 06/13/16) chlorhexidine (Verified Allergy, Mild, 06/13/16) saccharin (Verified Allergy, Mild, 06/13/16) methocarbamol (Verified Allergy, Unknown, BREAK OUT IN HIVES AND ITCH ALL OVER, 08/02/15) ipratropium (Verified Adverse Reaction, Mild, dry mouth, 08/02/15) Scheduled Albuterol/Ipratropium (Combivent Respimat Inhal Tabor) 120 Spr/4 Gm Inhaler 1 PUFF IH QID Bacitracin (Bacitracin Ointment) 28.4 Gm Oint...g. 1 APPLIC TP DAILY apply to rt.toe ulcer Diltiazem ER (Diltiazem ER) 180 Mg Cap.er.24h 180 MG PO HS Duloxetine (Duloxetine) 20 Mg Capsule.dr 20 MG PO HS Fentanyl 50 mcg/hr Patch (Fentanyl 50 mcg/hr Patch) 50 mcg/hr Patch.td72 1 PATCH TRANSDERM Q3D Gabapentin (Gabapentin) 300 Mg Capsule 300 MG PO TID Hydromorphone (Hydromorphone) 4 Mg Tablet 4 MG PO Q4H Levothyroxine (Levothyroxine) 50 Mcg Tablet 25 MCG PO DAILY Lisinopril (Lisinopril) 5 Mg Tablet 2.5 MG PO DAILY Metformin (Metformin) 500 Mg Tablet 500 MG PO DAILY Montelukast (Montelukast) 10 Mg Tablet 10 MG PO HS Trazodone (Trazodone) 150 Mg Tablet 300 MG PO HS Warfarin Sodium (Warfarin Sodium) 5 Mg Tablet 5 MG PO DAILY Scheduled PRN Albuterol HFA (Proair HFA) 8.5 Gm Hfa.aer.ad 2 PUFFS INHALATION Q4H PRN PRN For Shortness of Breath Albuterol Sulfate (Ventolin HFA Inhaler) 200 Puff/18 Gm Inhaler 2 PUFF INH Q2H PRN PRN For Shortness of Breath Docusate Sodium (Colace) 100 Mg Capsule 100 MG PO BID PRN PRN For Constipation Nystatin (Nystatin) 15 Gm Powder 1 APPLIC TOPICAL TID PRN PRN RASH Polyethylene Glycol 3350 (Miralax) 17 Gm Powd.pack 17 GM PO DAILY PRN PRN For Constipation diphenhydrAMINE HCl (Benadryl) 25 Mg Capsule 25 MG PO QID PRN PRN For Itching General Time Seen by MD: 12:32 Chief Complaint Other (altered mental status) Hx Obtained From: EMS Unable to Obtain Hx: Patient condition Arrived By: Ambulance Sudden in Onset?: Yes Onset Occurred: Just prior to arrival Symptom Duration: Since onset Associated with: Reports: Cough, Diaphoresis, Fever, Wheeze Recent Healthcare: Recent doctor visit, Recent hospitalization Similar Sx Previous: Yes Past Medical History Past Medical History Notes: last known code status: full code Past Medical History COPD A-fib Asthma Pneumonia Hiatal hernia UTI Reports: Congestive heart failure, Diabetes mellitus Past Surgical History Trigger finger release Cardiac ablation/cardioversion Reports: Hysterectomy Smoking History Former Smoker Social History lives at [facility] Alcohol Use: 1-3 per week Drug Use: Denies drug use Other Social History: , Lives in [facility] Occupation lives in [facility] Ambulatory Status Independent Review of Systems Constitutional: Reports: Fever, Denies: Chills Respiratory: Reports: Prod cough, bloody, Prod cough, clear, Shortness of breath, Wheezing Skin: Reports Diaphoresis Complete sys rev & neg: except as marked. Neurologic: Reports: Confusion, Shaking Psychiatric: Reports: Change mental status Physical Exam Initial Vital Signs Vital Signs (First) Date Time Temp Pulse Resp B/P Pulse Ox O2 Delivery O2 Flow Rate FiO2 08/05/16 12:19 36.9 103 23 107/85 98 Non-Rebreather 08/05/16 14:56 2 Initial VS: Reviewed General/Constitutional: Awake, Alert Appearance / Presentation: Positive: Obese tremulous and shaky Neck: Atraumatic, Supple RESPIRATORY: hypoxic on arrival from EMS, patient had a C Pap mask with vomit in mask coarse breath sounds bilaterally Abdomen: Atraumatic, Soft, Non-tender LOWER EXTREMITIES: 1+ bilateral lower extremity edema moving both extremities Skin: Atraumatic, Color NL, No rash Neurologic: Oriented X3, Speech NL, No motor deficits, No sensory deficits, CN II - XII intact, Reflexes equal bilat Head / Eyes: Atraumatic, Normocephalic 5mm reactive pupils UPPER EXTREMITIES: moving both extremities Interpretation & Diagnostics Lab Results Interpretation Result Diagram: 08/05/16 1230 08/05/16 1230 Test 08/05/16 12:30 08/05/16 12:40 08/05/16 13:31 White Blood Count 18.0th/mm3 (3.8-10.1) Red Blood Count 5.30mil/mm3 (3.90-5.20) Hemoglobin 12.6g/dL (12.0-15.6) Hematocrit 42.8% (35.0-46.0) Mean Corpuscular Volume 80.8fL (81-100) Mean Corpuscular Hemoglobin 23.8pg (27.0-35.0) Mean Corpuscular Hemoglobin Concent 29.4% (32.0-37.0) Red Cell Distribution Width 19.9% (12.3-15.4) Platelet Count 665bil/L (150-400) Neutrophils (%) (Auto) 81.1% (40-74) Lymphocytes (%) (Auto) 7.1% (14-46) Monocytes (%) (Auto) 10.1% (4-12) Eosinophils (%) (Auto) 1.0% (0-5) Basophils (%) (Auto) 0.5% (0-3) Prothrombin Time 24.5sec (8.1-12.5) Prothromb Time International Ratio 2.25ratio Sodium Level 140mEq/L (134-144) Potassium Level 5.1mEq/L (3.5-5.2) Chloride Level 94mEq/L (97-108) Carbon Dioxide Level 31mmol/L (18-29) Blood Urea Nitrogen 18mg/dL (8-27) Creatinine 0.55mg/dL (0.57-1.00) Estimat Glomerular Filtration Rate 154mL/min (>59) Glucose Level 130mg/dL (60-99) Calcium Level 9.1mg/dL (8.5-10.1) Magnesium Level 2.1mg/dL (1.6-2.6) Total Bilirubin 0.3mg/dL (0.0-1.2) Aspartate Amino Transf (AST/SGOT) 13U/L (0-50) Alanine Aminotransferase (ALT/SGPT) 5U/L (0-32) Alkaline Phosphatase 110U/L (25-165) Troponin T < 0.010ug/L (0.0-0.011) Total Protein 7.0g/dL (6.4-8.4) Albumin 3.6g/dL (3.4-5.0) Lipase 10U/L (13-60) Procalcitonin 0.04ng/mL (0.00-0.08) Lactic Acid Level 1.9mmol/L (0.4-2.0) Urine Color Yellow (YELLOW) Urine Appearance Hazy (CLEAR,HAZY) Urine pH 7.0 (5.0-8.0) Urine Specific [place] 1.015 (1.003-1.035) Urine Protein Tracemg/dL (NEG,TRACE) Urine Glucose (UA) Negativemg/dL (NEGATIVE) Urine Ketones Negativemg/dL (NEGATIVE) Urine Occult Blood Negative (NEGATIVE) Urine Nitrite Negative (NEGATIVE) Urine Bilirubin Negative (NEGATIVE) Urine Urobilinogen Normalmg/dL (NORMAL) Urine Leukocyte Esterase Negative (NEGATIVE) Urine RBC 0-2/hpf (0-2) Urine WBC 0-5/hpf (0-5) Urine Epithelial Cells Occasional/hpf (NONE-MOD) Urine Crystals None seen (NONE SEEN) Urine Bacteria Few/hpf (NONE-FEW) Urine Hyaline Casts Occasional/lpf (NONE) Urine Granular Casts None seen (NONE SEEN) Urine Waxy Casts None seen (NONE SEEN) Urine Red Blood Cell Casts None seen (NONE SEEN) Urine White Blood Cell Casts None seen (NONE SEEN) Urine Mucus Present (None Seen) Urine Trichomonas None seen (NONE SEEN) Urine Yeast None (NONE SEEN) Urinalysis Comment None Urine Culture Reflexed Not indicated Lab Results Interpretation: BLOOD GAS REPORT: pH 7.382/pCO2 62/pO2 45.7/cHCO3(P) 36.8/cBase(B) 10.3 ECG Interpretation ECG Interpretation: first degree AV block RBBB Time: 13:17 Interpreted by: ED physician Normal ECG Interpretation: Normal rate (81), Normal sinus rhythm X-Ray Chest Interpretation Chest Xray Interpretation: IMPRESSION: No acute disease. Dictated by: Hood Angeles M.D. on 08/05/2016 at 13:49 Approved by: Hood Angeles M.D. on 08/05/2016 at 13:49 View: Portable, 1 view Interpretation / Wet Read by: Interpret - Radiologist CT Head Interpretation IMPRESSION: 1. No acute intracranial abnormalities. 2. Cerebral volume loss and chronic microvascular ischemic changes. Dictated by: Christa Mendoza M.D. on 08/05/2016 at 13:48 Approved by: Christa Mendoza M.D. on 08/05/2016 at 13:54 Interpretation / Wet Read by: Interpret - Radiologist Re-Eval/Medical Decision Med Decision/Clinical Course Inadvertent opiate overdose. Received Narcan in the field and subsequently vomited. Suspect aspiration. Zosyn given. Reviewed current dose of Narcan given. Patient is continuing to require oxygen and has not returned to reasonable functional baseline. Will be admitted. Narcan drip ordered. Re-Evaluation/Progress #1: Time of Eval: 14:17 Re-Evaluation/Progress Note: Patient was awake and alert. Discussed plan for admit. Patient understands and agrees. All questions addressed. Re-Evaluation/Progress #2: Time of Eval: 14:40 Re-Evaluation/Progress Note: Patient had pinpoint pupils and was not responsive. Re-Evaluation/Progress #3: Time of Eval: 14:48 Re-Evaluation/Progress Note: Patient was alert, responsive and shaking after Narcan treatment. Counseled Regarding: Diagnosis, Lab results, Need for admission Discharge & Departure Impression: Primary Impression: Opiate overdose Encounter type: initial encounter Injury intent: undetermined intent Qualified Code: T40.604A - Poisoning by unspecified narcotics, undetermined, initial encounter Disposition: ADMITTED TO HOSPITAL Discharge Condition All VS Reviewed: Yes Condition: Stable Referrals: Jasen Pepper MD (PCP) Crit Care Except Billable Proc Time Spent: 75-104 minutes Services Performed: Patient management by me, Time spent at bedside, Reviewing test results, Reviewing imaging, Discussing patient care, Documentation in record Critical Care Notes: See MDM Scribe Attestation Portions of this note were transcribed by Kaley Louis. I, Dr. Donald Forrest personally performed the history, physical exam and medical decision-making; I reviewed and confirmed the accuracy of the information in the transcribed note. Signed by: Ghassan Hubbard, 08/05/16 and 1300 copies to: Jasen Pepper MD, Timothy S DO Aug 05, 2016 12:50 Mellissa Louis Aug 05, 2016 12:57
--- NOTE | 2016-08-05 12:53 | ABG ---
DateTimeAnalyzed 12:46:10 -_ pH ____7.382 - pCO2 ___62.0__ -mmHg pO2 ___45.7__ -mmHg HCO3- ___36.8__ -mmol/L ABE ___10.3__ -mmol/L tHb ___13.2__ -g/dL O2Hb ___80.4__ -% COHb ____1.7__ -% MetHb ____0.3__ -% sO2 ___82.1__ -% FIO2 ___21.0__ -% Drawn By rs - Date/Time Notified____ 12:53:00 -_ Oxygen Device 1 NON RE-MARTHA - Notified By rs - Notified Whom __OKELLEY - K+ ____4.5__ -mmol/L tO2 ___14.9__ -Vol% Tayo test N/A -
[2016-08-05 13:19] LABS: TROPONIN T < 0.010 ug/L (0.0-0.011)
[2016-08-05 13:21] LABS: Lipase 10 U/L (13-60); Magnesium 2.1 mg/dL (1.6-2.6)
[2016-08-05 13:27] LABS: INR 2.25 ratio
--- NOTE | 2016-08-05 13:51 | DRSVH ---
PROCEDURE: X-RAY CHEST ONE VIEW, PORTABLE ([id number]) INDICATIONS: dyspnea TECHNIQUE: One view of the chest was acquired. COMPARISON: [facility], CR, XR CHEST 1VW (PORTABLE), 06/13/2016, 15:20. FINDINGS: Surgical changes and devices: None. Lungs and pleura: No pleural effusions or pneumothorax. Lungs are clear. Chronic diffuse interstiti al disease. The right apex is obscured by the patient's chin Mediastinum: Mediastinal contours appear normal. Heart size is normal. Bones and chest wall: No suspicious bony lesions. Overlying soft tissues appear unremarkable. IMPRESSION: No acute disease. Dictated by: Hood Angeles M.D. on 08/05/2016 at 13:49 Approved by: Hood Angeles M.D. on 08/05/2016 at 13:49
--- NOTE | 2016-08-05 13:56 | DRSVH ---
PROCEDURE: CT BRAIN WITHOUT CONTRAST ([id number]) INDICATIONS: 75 year-old woman with altered mental status. TECHNIQUE: Noncontrast 4.5 mm thick angled axial sections acquired from the foramen magnum to the vertex, with c oronal reformats. COMPARISON: [facility], CT, CT BRAIN WO CON, 06/13/2016, 15:23. FINDINGS: Image quality: Excellent. CSF spaces: Basal cisterns are patent. No extra-axial fluid collections. The ventricles are symmet cayla in size and shape. Brain: No intracranial bleeds or masses. There is mild cerebral volume loss for age, with resultant ventricular and sulcal prominence. There are moderate periventricular and deep white matter chronic small vessel ischemic changes. There is intracranial internal carotid artery atherosclerosis. Skull and face: Calvarium and visualized facial bones appear intact, without suspicious lesions. Th ere is hyperostosis frontalis. Sinuses: Visualized sinuses and mastoids are clear. IMPRESSION: 1. No acute intracranial abnormalities. 2. Cerebral volume loss and chronic microvascular ischemic changes. Dictated by: Christa Mendoza M.D. on 08/05/2016 at 13:48 Approved by: Christa Mendoza M.D. on 08/05/2016 at 13:54
[2016-08-05] MEDS ORDERED: Piperacillin-Tazo 3.375 Gm Inj 3.375 GM in Dextrose 5% Minibag Plus 50 ML IV ONE (14:20)
[2016-08-05 14:30] LABS: APPEARANCE,URINE HAZY (CLEAR,HAZY); COLOR,URINE YELLOW (YELLOW)
[2016-08-05 14:31] LABS: OCCULT BLOOD,URINE NEGATIVE (NEGATIVE); UROBILINOGEN,URINE NORMAL (NORMAL)
[2016-08-05] MEDS ORDERED: FENT1PAT9 TRANSDERM (14:33)
[2016-08-05] MEDS ORDERED: ALBU18HF INH (14:38)
[2016-08-05] MEDS ORDERED: Naloxone 0.4 mg/mL 10 mL Inj IVPUSH PRN ×2 (14:45→18:10)
[2016-08-05 14:56] VITALS: BP 101/38; PULSE 86; RESP 26
[2016-08-05] MEDS ORDERED: Naloxone Inj 2 MG in 0.9% Sodium Chloride 500 ML IV PRN (15:00)
[2016-08-05 16:32] VITALS: BP 101/51; PULSE 75; RESP 14; O2SAT 93
[2016-08-05] MEDS ORDERED: Polyethylene Glycol (PEG) 17 Gm Powder PO PRN (16:35)
[2016-08-05] MEDS ORDERED: Ondansetron 2 mg/mL 2 mL Inj IVPUSH PRN (16:35)
[2016-08-05 17:00] VITALS: BP_SYST 101; BP_SYST 132; BP_DIAS 51; BP_DIAS 53; PULSE 72; PULSE 75; RESP 14; O2SAT 93; O2SAT 97
--- NOTE | 2016-08-05 17:05 | PCM.HPMED ---
Subjective Date of Service Aug 05, 2016 Primary Provider: Admitting Physician: Phylicia Hendricks DO Primary Care Physician: Jasen Pepper MD Attending Physician: Phylicia Hendricks DO Chief Complaint: Altered mental status History of Present Illness: This is a 75-year-old female with past medical history significant for chronic pain on opiate pain medications, type II diabetes mellitus, paroxysmal atrial fibrillation, hypothyroidism, and COPD who presented via EMS due to altered level of consciousness. The patient was only able to answer directed questions and was not able to provide a history. It was reported that the patient was in her usual state of health until 11 AM on 08/05/2016 when a caregiver found her on the toilet confused. Of note, the patient is on a fentanyl patch and had just received her dose of Dilaudid as well. EMS was called and found the patient with low oxygen saturation. A breathing treatment and Narcan were given. Afterwards, the patient was more responsive and her oxygen saturation was reported to have increased.. She was then placed on BiPAP and vomited into the mask. Medics report that patient told them that she has had a cough with bloody sputum over the last several days. Of note, on 06/11/2016 the patient was brought to our hospital due to altered mental status and this was ultimately deemed to be do to overuse of narcotic medications. Review of the [facility] prescription monitoring service website shows that at last visit she was using a fentanyl 75 g per hour patch along with hydromorphone 2 mg tablets,, #30 per month. This was a total of 188 morphine equivalents per day. Based on [place] prescription monitoring service records over the last several months she had received a fentanyl 50 g per hour patch. She had a increase in her opiate prescription starting on 07/20. Based on the most recent prescription history (07/20/2016)she is now getting fentanyl 50 g per hour patch and hydromorphone 4 mg, #180 per month for a total of 216 morphine equivalents per day. In the emergency department initial vitals were temperature 36.9c, pulse 103, respiratory rate 23, blood pressure 107/85, satting at 90% on nonrebreather. Repeat vitals showed a temperature of 38.5 Celsius. Initial laboratory results showed a WBC of 18 with left shift, hemoglobin 12.6, hematocrit 42.8, and platelets of 665. PT 24.5, INR 2.25. Glucose was 130. Troponin < 0.010. Lactic acid 1.9. Urinalysis shows no concerning abnormality. EKG showed sinus rhythm, first-degree AV block, and right bundle branch block. Chest x-ray showed no acute disease. Brain CT showed no acute intracranial abnormality, cerebral volume loss and chronic microvascular ischemic changes. Blood cultures are pending. Review of Systems: A comprehensive review of systems was conducted with the patient and found to be negative except as above in the History of Present Illness. Allergies Coded Allergies: Cephalosporins (Verified Allergy, Mild, 06/13/16) Proton Pump Inhibitors (Verified Allergy, Mild, 06/13/16) chlorhexidine (Verified Allergy, Mild, 06/13/16) saccharin (Verified Allergy, Mild, 06/13/16) methocarbamol (Verified Allergy, Unknown, BREAK OUT IN HIVES AND ITCH ALL OVER, 08/02/15) ipratropium (Verified Adverse Reaction, Mild, dry mouth, 08/02/15) Home Medications Combivent 1 puff 4 times daily Diltiazem 180 mg ER at night Duloxetine DR 20 mg at night Fentanyl 50 g per hour: Apply 1 patch every 72 hours Gabapentin 300 mg by mouth 3 times daily Hydromorphone 4 mg every 4 hours for pain Levothyroxine 25 g daily Lisinopril 2.5 mg daily Metformin 500 mg daily [place] glue casts 10 mg at bedtime Trazodone 300 mg at night Warfarin Albuterol 2 puffs by mouth every 4 hours as needed Diphenhydramine 25 mg every 6 hours as needed Docusate sodium 100 mg as needed PMH COPD Atrial fibrillation on chronic anticoagulation Diabetes mellitus type II Obstructive sleep apnea Neuropathic pain secondary to diabetes Right hip osteoarthritis Polyneuropathy Last echocardiogram on 10/16/2015: Left ventricular systolic function normal with EF of 60-65%. Left ventricular wall thickness borderline increased and diastolic parameters indicate normal left ventricular diastolic function and normal filling pressures. Right ventricle moderately dilated and right ventricular systolic function mildly reduced [id number] pulmonary hypertension with right ventricular systolic pressure of 40 mmHg. Surgical History Total hysterectomy Multiple trigger point injections Carpal tunnel release Hip replacement Family History Unable to obtain due to mental status Social History Hx Alcohol Use: Yes (occasional 1 glass of wine/week) Hx Substance Use: No Hx Tobacco Use: Yes Smoking Status: Former Smoker Additional Information Patient lives at [facility] in [facility] which is an assisted living facility. Exam Vital Signs Vital Sign - Last Date Time Temp Pulse Resp B/P Pulse Ox O2 Delivery O2 Flow Rate FiO2 08/05/16 16:32 75 14 101/51 93 Nasal Cannula 2 08/05/16 13:15 38.5 Exam General: Patient was laying down in hospital bed, would answer directed questions but provided no history, would nod off at times and have to be awakened. HEENT: Normocephalic, atraumatic. External ears without defect. Pupils equal, decreased in size, reactive to light and accommodation. Anicteric sclerae, moist conjunctivae, and no lid lag. Oropharynx free of erythema and cobble stoning with dry mucosa. Neck: Supple with full range of motion. No jugular venous distension. No bruits. No lymphadenopathy or thyromegaly. Cardiovascular: Regular rate and rhythm with no murmurs, rubs, or gallops appreciated Pulmonary: Rhonchi present, wheezing present. Crackles at bases.i. Normal respiratory effort with no use of accessory muscles. Abdomen: Bowel tones present. Soft, nontender, nondistended. No hepatosplenomegaly or masses appreciated. Extremities: No clubbing, cyanosis, edema, or lymphadenopathy appreciated. Skin: Normal temperature, turgor, and texture; no rash, ulcers, or subcutaneous nodules appreciated. Neurological: Cranial nerves grossly intact. Normal muscle strength, tone, and bulk. Lab and Diagnostics Result Diagram: 08/05/16 1230 08/05/16 1230 X-Rays, CTs and MRIs Chest x-ray on 08/05/2016: IMPRESSION: No acute disease. Dictated by: Hood Angeles M.D. on 08/05/2016 at 13:[address] on 08/05/2016: IMPRESSION: 1. No acute intracranial abnormalities. 2. Cerebral volume loss and chronic microvascular ischemic changes. Dictated by: Christa Mendoza M.D. on 08/05/2016 at 13:48 12-lead ECG EKG showed sinus rhythm with rate of 80, prolonged DC interval, right bundle branch block. This was relatively unchanged from EKG on 06/13/2016. Assessment & Plan This is a 75-year-old female with past medical history significant for chronic pain, atrial fibrillation on anticoagulation with therapeutic INR, and COPD who presented with altered mental status. The patient was at her assisted living facility on the toilet when she became confused. Of note, on review of the [facility] prescription monitoring service it appears the patient had a recent increase in her opiate pain medications from 120 morphine equivalents per day to 216 morphine equivalents per day. She presented similarly in May 2015 after narcotic overuse when she was on 188 morphine equivalents per day. EMS gave patient Narcan with improvement. Emergency department gave narcan with improvement in symptoms. This is likely a narcotic overdose. Differential includes CVA, infection (pneumonia, urinary tract), hypoxia, medication induced, dehydration, seizure. Also of note, patient was placed on the BiPAP by EMS and vomited likely causing her to aspirate. Acute encephalopathy, present on admission, ongoing: -Likely secondary to opiate overdose. -Patient received several Narcan doses in ER. -Neuro checks every 2 hours. -Urine tox screen ordered. Likely aspiration pneumonia, present on admission, ongoing: -Patient aspirated while on BiPAP. WBC 18. Febrile temperature of 38.5 Celsius. -Zosyn ordered. Chronic thrombocytosis, present admission, ongoing: -On admits platelets were 665. On 06/13/2016 platelets were 724. -Unknown etiology. Atrial fibrillation on chronic anticoagulation, present admission, ongoing: -Patient on anticoagulation with warfarin and INR is 2.25. Rate on admit 75. -Continue warfarin. Continue diltiazem in am. Diabetes mellitus type II, present admission, ongoing: -On admit glucose 130 -A1c is pending. -Humalog low-dose correctional. -Continue metformin in the morning. COPD, present admission, ongoing: -Duonebs every 4 hours scheduled, albuterol as needed. -Consider continuing home medications tomorrow. Diabetic neuropathy, present admission, ongoing: -Hold gabapentin. Chronic musculoskeletal pain, present admission, ongoing: -Hold fentanyl patch and Dilaudid. -Monitor for signs of withdrawal. Hypothyroidism, present on admission, ongoing: -TSH and free T4 ordered. -Continue levothyroxine. Depression/anxiety, present admission: -Continue duloxetine 20 mg. DVT prophylaxis with heparin. Patient's POLST form at assisted living facility stated full resuscitation however full ACP was unable to be performed with the patient as she currently has encephalopathy. Patient is admitted under inpatient status with expected length of stay greater than 2 midnights due to severity of presenting symptoms, risk of adverse event, and complexity of treatment plan. Resuscitation Status: CPR: Attempt Resuscitation Attending Statement The patient was seen and examined together with Dr. Marie on 08/05/16 and I have added additional information to the note above. Gera Marie DO Aug 05, 2016 17:05 Phylicia Hendricks DO Aug 05, 2016 19:04 Phylicia Hendricks DO Aug 05, 2016 19:04
[2016-08-05] MEDS: 0.9% Sodium Chloride 1,000 ML IV SCH (17:20)
--- NOTE | 2016-08-05 17:21 | NUR ---
Admit Pt arrived to CCU room #2015 at 1700 from ED. Pt drowsy but opening eyes and answering questions appropriately. On 2L O2 NC at 96% Bilateral audible wheezing. Non productive cough. BP 110/56 and HR 70's. Alba draining freely. NS started at 100cc/hr. MRSA swab sent. x2 peripheral IV's, labs/cultures ordered. UA sent from ED. Scab on 2nd toe left foot, left knee and old scarring (blanchable) on coccyx area. Requested WC consult. Floating heels and elbows with pillows.
[2016-08-05] MEDS ORDERED: 0.9% Sodium Chloride 1,000 ML IV ONE (18:05)
[2016-08-05] MEDS ORDERED: Albuterol 2.5 mg/3 mL Inhalation Solution NEB PRN (18:10)
[2016-08-05] MEDS ORDERED: Glucose 40% Oral Gel 15 Gm Tube PO PRN (18:10)
[2016-08-05 20:30] VITALS: BP 97/45; PULSE 71; RESP 14; O2SAT 98
--- NOTE | 2016-08-05 20:30 | PCM.CONPHA ---
Subjective Date of Service: Aug 05, 2016 Altered mental status Reason for Pharmacy Consult: Anticoagulation Management Objective Vital Signs Date Time Temp Pulse Resp B/P Pulse Ox O2 Delivery O2 Flow Rate FiO2 08/05/16 17:04 Supplement Oxygen 08/05/16 17:00 38.5 75 14 101/51 93 Nasal Cannula 2 08/05/16 17:00 37.5 72 14 132/53 97 Nasal Cannula 2.00 08/05/16 16:32 75 14 101/51 93 Nasal Cannula 2 08/05/16 14:56 86 26 101/38 Nasal Cannula 2 08/05/16 13:15 38.5 08/05/16 12:19 36.9 103 23 107/85 98 Non-Rebreather Weight (Kilograms): 89.55 Height (Feet): 5 Height (Inches): 5 Test 08/05/16 12:30 08/05/16 12:33 08/05/16 12:40 08/05/16 13:16 White Blood Count 18.0th/mm3 (3.8-10.1) Red Blood Count 5.30mil/mm3 (3.90-5.20) Hemoglobin 12.6g/dL (12.0-15.6) Hematocrit 42.8% (35.0-46.0) Mean Corpuscular Volume 80.8fL (81-100) Mean Corpuscular Hemoglobin 23.8pg (27.0-35.0) Mean Corpuscular Hemoglobin Concent 29.4% (32.0-37.0) Red Cell Distribution Width 19.9% (12.3-15.4) Platelet Count 665bil/L (150-400) Neutrophils (%) (Auto) 81.1% (40-74) Lymphocytes (%) (Auto) 7.1% (14-46) Monocytes (%) (Auto) 10.1% (4-12) Eosinophils (%) (Auto) 1.0% (0-5) Basophils (%) (Auto) 0.5% (0-3) Prothrombin Time 24.5sec (8.1-12.5) Prothromb Time International Ratio 2.25ratio Sodium Level 140mEq/L (134-144) Potassium Level 5.1mEq/L (3.5-5.2) Chloride Level 94mEq/L (97-108) Carbon Dioxide Level 31mmol/L (18-29) Blood Urea Nitrogen 18mg/dL (8-27) Creatinine 0.55mg/dL (0.57-1.00) Estimat Glomerular Filtration Rate 154mL/min (>59) Glucose Level 130mg/dL (60-99) Calcium Level 9.1mg/dL (8.5-10.1) Magnesium Level 2.1mg/dL (1.6-2.6) Total Bilirubin 0.3mg/dL (0.0-1.2) Aspartate Amino Transf (AST/SGOT) 13U/L (0-50) Alanine Aminotransferase (ALT/SGPT) 5U/L (0-32) Alkaline Phosphatase 110U/L (25-165) Troponin T < 0.010ug/L (0.0-0.011) Total Protein 7.0g/dL (6.4-8.4) Albumin 3.6g/dL (3.4-5.0) Lipase 10U/L (13-60) Procalcitonin 0.04ng/mL (0.00-0.08) Thyroid Stimulating Hormone (TSH) 2.340uIU/mL (0.450-4.500) Free Thyroxine 1.04ng/dL (0.82-1.77) Lactic Acid Level 1.9mmol/L (0.4-2.0) Urine Opiates Screen Positive Urine Methadone Screen Negative Urine Barbiturates Screen Negative Urine Amphetamines Screen Negative Urine Benzodiazepines Screen Negative Urine Cocaine Metabolite Screen Negative Urine Cannabinoids Screen Negative Test 08/05/16 13:31 Urine Color Yellow (YELLOW) Urine Appearance Hazy (CLEAR,HAZY) Urine pH 7.0 (5.0-8.0) Urine Specific Gem 1.015 (1.003-1.035) Urine Protein Tracemg/dL (NEG,TRACE) Urine Glucose (UA) Negativemg/dL (NEGATIVE) Urine Ketones Negativemg/dL (NEGATIVE) Urine Occult Blood Negative (NEGATIVE) Urine Nitrite Negative (NEGATIVE) Urine Bilirubin Negative (NEGATIVE) Urine Urobilinogen Normalmg/dL (NORMAL) Urine Leukocyte Esterase Negative (NEGATIVE) Urine RBC 0-2/hpf (0-2) Urine WBC 0-5/hpf (0-5) Urine Epithelial Cells Occasional/hpf (NONE-MOD) Urine Crystals None seen (NONE SEEN) Urine Bacteria Few/hpf (NONE-FEW) Urine Hyaline Casts Occasional/lpf (NONE) Urine Granular Casts None seen (NONE SEEN) Urine Waxy Casts None seen (NONE SEEN) Urine Red Blood Cell Casts None seen (NONE SEEN) Urine White Blood Cell Casts None seen (NONE SEEN) Urine Mucus Present (None Seen) Urine Trichomonas None seen (NONE SEEN) Urine Yeast None (NONE SEEN) Urinalysis Comment None Urine Culture Reflexed Not indicated Assessment/Plan Assessment/Plan WARFARIN MANAGEMENT A\ 75YO F ADMITTED FOR SOB with history of AFIB , COPD,DM2, Hypothyroid Home dose Warfarin 5mg daily Goal INR=2-3 Current INR =2.25 HCT=42.8 Txi=386 Heparin 5000units subq Pt is unable to take PO meds sebastian MACHADO would like to hold warfarin, cover with heparin subq and start warfarin tomorrow P\ Hold warfarin tonight and check daily INRs. Pt will most likely be able to take PO in AM . Mati Austin [facility] Aug 05, 2016 20:30
[2016-08-05 20:41] VITALS: PULSE 59; RESP 22; O2SAT 95
[2016-08-05] MEDS: Albuterol-Ipratropium 3 mL Inhalation Solution NEB SCH (20:41)
[2016-08-05] MEDS: Insulin LISPRO 300 Unit/3 mL Inj SUBQ SCH (22:00)
[2016-08-05] MEDS: Piperacillin-Tazo 3.375 Gm Inj 3.375 GM in Dextrose 5% Minibag Plus 50 ML IV SCH (23:50)
[2016-08-06] VITALS (10 sets, daily range): BP systolic 103–169; BP diastolic 43–66; PULSE 59–90; RESP 16–25; O2SAT 95–98
[2016-08-06] MEDS: Albuterol-Ipratropium 3 mL Inhalation Solution NEB SCH ×4 (00:35→12:30)
[2016-08-06] MEDS: Heparin 5,000 Unit/mL Inj SUBQ SCH ×2 (00:38→08:43)
[2016-08-06 03:31] LABS: Mean Corpuscular Hemoglobin 23.4 pg (27.0-35.0); Mean Corpuscular Volume 78.1 fL (81-100); Platelet Count 577 bil/L (150-400)
[2016-08-06 03:48] LABS: INR 2.65 ratio
[2016-08-06 03:49] LABS: NEUTROPHILS % (AUTO) 65 % (40-74)
[2016-08-06 03:50] LABS: BASOPHILS % (AUTO) 1 % (0-3); EOSINOPHILS % (AUTO) 1 % (0-5); MONOCYTES % (AUTO) 13 % (4-12)
[2016-08-06 04:19] LABS: Magnesium 2.1 mg/dL (1.6-2.6)
--- NOTE | 2016-08-06 06:31 | NUR ---
Pt more awake and alert this am. Able to make needs known and answers questions and follows commands appropriately. Blood pressure improved, last one 146/70. HR remains sinus rhythm with a first degree AVB, rate 60-80's. Able to ADAT. Pt able to sip on water with no swallowing difficulties noted. No coughing/choking with sips or swallowing delays. Pt tolerated some soup and juice well. Will continue to monitor pt closely.
[2016-08-06] MEDS: Piperacillin-Tazo 3.375 Gm Inj 3.375 GM in Dextrose 5% Minibag Plus 50 ML IV SCH ×3 (06:42→23:01)
[2016-08-06] MEDS: Insulin LISPRO 300 Unit/3 mL Inj SUBQ SCH ×4 (08:00→21:32)
[2016-08-06] MEDS: 0.9% Sodium Chloride 1,000 ML IV SCH ×2 (08:42→21:29)
--- NOTE | 2016-08-06 08:51 | PCM.PNMED ---
Subjective Date of Service Aug 06, 2016 Subjective This is a 75 year old female with history of chronic pain on opiates and copd who presented with altered level of consciousness in setting of increasing opiate use. Overnight the patient is much improved. She is answering questions appropriately. She denies any pain. Otherwise review of systems negative. Exam Vital Signs Vital Sign - Last Date Time Temp Pulse Resp B/P Pulse Ox O2 Delivery O2 Flow Rate FiO2 08/06/16 04:35 75 17 98 Nasal Cannula 1.00 08/06/16 04:30 37.6 120/43 08/05/16 20:41 95 Intake and Output 08/05/16 08/05/16 08/06/16 Cumulative From/Thru 15:00 23:00 07:00 08/05/16 12:19 - 08/06/16 06:23 Intake Total 1922 ml 1922 ml Output Total 550 ml 600 ml 1150 ml Balance -550 ml 1322 ml 772 ml Intake Oral 360 ml 360 ml IV Total 1562 ml 1562 ml Output Urine Total 550 ml 600 ml 1150 ml # Bowel Movements 0 0 Exam General: Patient was resting comfortably. No acute distress. HEENT: Normocephalic, atraumatic. External ears without defect. Neck: Supple with full range of motion. No JVD. Cardiovascular: Regular rate and rhythm with no murmurs, rubs, or gallops appreciated Pulmonary: Coarse lung sound. No wheezing present. Normal respiratory effort with no use of accessory muscles. Abdomen: Bowel tones present. Soft, nontender, nondistended. No hepatosplenomegaly or masses appreciated. Extremities: No clubbing, cyanosis, edema, or lymphadenopathy appreciated. Skin: Normal temperature, turgor, and texture; no rash, ulcers, or subcutaneous nodules appreciated. Neurological: Cranial nerves grossly intact. Normal muscle strength, tone, and bulk. IVs and Medications Medications Reviewed: Medications were reviewed in detail Lab and Diagnostics Result Diagram: 08/06/16 0324 08/06/16 0324 X-Rays, CTs and MRIs Chest x-ray on 08/05/2016: IMPRESSION: No acute disease. Dictated by: Hood Angeles M.D. on 08/05/2016 at 13:[address] on 08/05/2016: IMPRESSION: 1. No acute intracranial abnormalities. 2. Cerebral volume loss and chronic microvascular ischemic changes. Dictated by: Christa Mendoza M.D. on 08/05/2016 at 13:48 12-lead ECG EKG showed sinus rhythm with rate of 80, prolonged ME interval, right bundle branch block. This was relatively unchanged from EKG on 06/13/2016. Assessment & Plan This is a 75-year-old female with past medical history significant for chronic pain, atrial fibrillation on anticoagulation with therapeutic INR, and COPD who presented with altered mental status. Acute encephalopathy, present on admission, improving: -Likely secondary to opiate overdose. -Patient received several Narcan doses in ER. -Urine tox screen ordered. Opioid/narcotic dependence is associated with continuous use of fentanyl patch, present on admission, ongoing: -Patient is improved. She has had altered mental status twice on fentanyl patch. -Palliative care consult ordered. -Until palliative consults we will use a continue a fentanyl patch to avoid withdrawal. Chronic musculoskeletal pain, present on admission, ongoing: -Restart fentanyl patch at 50mcg per hour until palliative consult. -I was able to speak with her primary care provider, Dr. Pepper of [facility], who stated that she has had increasing pain in her hip over the last several months that has required escalation in opiate pain medications. -Monitor for signs of withdrawal. -Palliative care to consult on 08/06/2016 concerning pain management. Likely aspiration pneumonia, present on admission, ongoing: -Patient aspirated while on BiPAP. WBC 18. Febrile temperature of 38.5 Celsius. Procalcitonin .07. Chest xray showed no acute disease. -Zosyn continued. Chronic thrombocytosis, present admission, ongoing: -On admits platelets were 665. On 06/13/2016 platelets were 724. -Unknown etiology. Atrial fibrillation on chronic anticoagulation, present admission, ongoing: -Patient on anticoagulation with warfarin and INR is 2.25. -Continue warfarin. Continue diltiazem. Diabetes mellitus type II, present admission, ongoing: -On admit glucose 130 -A1c 5.8. -Humalog low-dose correctional. COPD, present admission, ongoing: -Duonebs every 4 hours scheduled, albuterol as needed. Diabetic neuropathy, present admission, ongoing: -Continue gabapentin when mental status improves. Hypothyroidism, present on admission, ongoing: -TSH, free t4 within normal limits. -Continue levothyroxine. Depression/anxiety, present admission: -Continue duloxetine 20 mg. DVT prophylaxis with heparin. Patient's POLST form at assisted living facility in chart. VTE Mechanical Devices: Intermittant Pneumatic CD Resuscitation Status: CPR: Attempt Resuscitation Gera Marie DO Aug 06, 2016 08:44
[2016-08-06] MEDS ORDERED: Albuterol 2.5 mg/3 mL Inhalation Solution NEB PRN (14:05)
--- NOTE | 2016-08-06 14:47 | NUR ---
Palliative care note D/A: Phone call from Dr. Marie today to indicate a wish to have a palliative care consult on this pt. She is a 75 year old female here with an overdose who is on a large amount of pain medication. Dr. Agrawal would like to have assistance in meeting the patients pain needs while also getting assist in looking at a different dose of pain medications. Dr. Nelson aware. Need not urgent for today. P: Palliative care to follow. Amparo RENNER, CCM
--- NOTE | 2016-08-06 16:08 | NUR ---
Social Work: Initial Assessment / Readiness for d/c Data: Pt is a 75 y/o female admitted for hypoxia, opiate OD, possible aspiration. Pt's PCP is Dr Pepper, pt's insurance is Medicare with [employer] supp. EMR reviewed. Readmit score is 6, high. STE[employer] TENDER[employer]ER MACHINE met with pt at bedside, role explained. Pt states she lives at [facility] where she is assisted with most ADL's. Pt states she uses a walker regularly, does not drive, has no hx of HH or SNF, pt has no LTC or VA benefits. Pt states her sister will drive her back to [place] when medically stable, which may be tomorrow. Pt states she has not been up much and that her walker is at [facility]. STEAK TENDERIZER MACHINE states that she will come back if the doctor thinks that HH may be needed. Pt resistant to HH at this time. STEAK TENDERIZER MACHINE will continue to follow. STEAK TENDERIZER MACHINE called [facility] regarding the possible need for a bedside assessment. Roxanne requested clinicals which will be reviewed today. UR specialist faxing clinicals. STEAK TENDERIZER MACHINE will follow up regarding bedside assessment need. Assessment: Pt from [facility]. Plan: Pt will return to [facility] via POV with sister when medically stable. UR specialist faxing clinicals for pt to [facility], STEAK TENDERIZER MACHINE will follow up with [facility] (Roxanne) if bedside assessment is needed. STEAK TENDERIZER MACHINE will continue to follow for possible HH need. LEONARDO Person Addendum: 08/06/16 at 1619 by RENE JAY Amended: Links added.
--- NOTE | 2016-08-06 16:31 | NUR ---
Faxed clinicals to [facility] Attn: Roxanne
--- NOTE | 2016-08-06 18:27 | NUR ---
transfer Pt was transferred out of CCU to CCU at 0800. alert and oriented x3. 1L NC at 97% Up to BSC for BM with SBA. Tolerating soft diet. Vitals stable. [place] and pts sister called for an update. Right wrist IV fell out. Left thumb IV patent.
[2016-08-06] MEDS: Diltiazem CD 180 mg ER24 Capsule PO SCH (21:29)
[2016-08-06] MEDS: DULoxetine 20 mg DR Capsule PO SCH (21:30)
[2016-08-07] VITALS (12 sets, daily range): BP systolic 107–164; BP diastolic 50–79; PULSE 65–104; RESP 16–22; O2SAT 88–98
[2016-08-07 04:33] LABS: INR 2.33 ratio
[2016-08-07 04:38] LABS: BASOPHILS % (AUTO) 0.4 % (0-3); EOSINOPHILS % (AUTO) 0.1 % (0-5); MONOCYTES % (AUTO) 7.8 % (4-12); Mean Corpuscular Hemoglobin 23.6 pg (27.0-35.0); Mean Corpuscular Volume 75.2 fL (81-100); Platelet Count 783 bil/L (150-400)
--- NOTE | 2016-08-07 07:19 | NUR ---
GI Pt c/o nausea around midnight, given zofran 8mg IV, relieved from nausea; continue on IVF and IV abx, lopez drained with large uo. Tele SR-ST with pac, BP stable.
[2016-08-07] MEDS: Piperacillin-Tazo 3.375 Gm Inj 3.375 GM in Dextrose 5% Minibag Plus 50 ML IV SCH ×3 (07:36→23:01)
[2016-08-07] MEDS: Insulin LISPRO 300 Unit/3 mL Inj SUBQ SCH ×4 (07:44→22:00)
[2016-08-07] MEDS: 0.9% Sodium Chloride 1,000 ML IV SCH ×3 (08:34→23:01)
--- NOTE | 2016-08-07 09:29 | PCM.CONPAL ---
Date of Service Aug 07, 2016 Date of Hospital Admission: Aug 05, 2016 at 16:28 Date of Palliative Consult: Aug 07, 2016 Requesting Provider: Gera Marie DO Reason Palliative Care Consult: Pain Reason for Consultation Phone call from Dr. Marie 08/06 to indicate a wish to have a palliative care consult on this pt. She is a 75 year old female here with an overdose who is on a large amount of pain medication. Dr. Agrawal would like to have assistance in meeting the patients pain needs while also getting assist in looking at a different dose of pain medications. Dr. Nelson aware. Need not urgent for today. Will be seen 08/07. Hospital Unit @time of consult: Critical Care (room 2015) Palliative Care Recommendation Summary of palliative recommendations: Dr. Meraz reviewed the pain medications prescribed to patient as outlined in pt 's history and physical. On 06/11/2016 the patient was brought to our hospital due to altered mental status and this was ultimately deemed to be do to overuse of opiate medications. Review of the [facility] prescription monitoring service website shows that at last hospital admission she was using a fentanyl 75 g per hour patch along with hydromorphone 2 mg tablets, #30 per month. 1. The 75 patch is about 150 oral morphine equivalents. This is changed q 3 days, but every day the pt receives a total of 150 morphine equivalents from her patch alone. 2. The hydromorphone 2mg # 30 is 2x5x30 = 300 oral morphine equivalents per month or 10mg oral morphine equivalents from her hydromorphone daily. She had a increase in her opiate prescription starting on 07/20/2016. Based on the most recent prescription history (07/20/2016) she is now getting fentanyl 50 g per hour patch and hydromorphone 4 mg, #180/month. 1. The fentanyl patch of 50 about 100 oral morphine equivalents (OME). This is changed q 3 days, but every day the pt receives a total of 100 oral morphine equivalents (OME) from her patch alone. 2. The hydromorphone 4mg # 180 is [id number] = 3600 oral morphine equivalents( OME)/month or 120 mg oral morphine equivalents(OME) daily. The question is why would pt be increased from 10mg OME per day to 120mg OME per day, if she is a stable chronic pain patient with no new acute injury to cause her worsening pain? Also, why has she twice been admitted for apparent oversedation due to opiate medications administered to her by facility staff? First, I reviewed with Pharmacy staff at [facility] as to whether any other medications Mrs. Thibodeaux is prescribed could prolong the strength of the hydromorphone, or whether a fluctuating cardiac or kidney function could contribute to oversedation by the opiates. Pharmacy reviewed her medication and medical record and could not find drug interaction or disease mechanism contributing to this issue. Next, I reviewed facility printed out notes on administration of pain meds in patient's paper chart at the hospital, and they seem to be thorough. However, it appears that the PRN hydromorphone dose was actually being given to patient around the clock, as if it were a scheduled medication. 1. Perhaps this requires more educational training of staff to wait a set period for a dose of hydromorphone to work before administering a second dose. Usually it takes one hour for an oral dose of pain medication to be effective. However, it appears per paper documentation provided to the hospital by the facility, that each dose was given 4 hours apart, and this would be an appropriate time interval between doses. 2. Certainly the facility needs to look at how many total doses of hydromorphone the pt is asking for daily and RN must assess for pain each time, and effectiveness of the dose. On the charting, this was occurring, but not every time the pt received the medication. 3. Per the charting I reviewed, the facility does have a hydromorphone pill count daily of what Mrs. Thibodeaux received, and sometimes has a note from RN on what pain scale pt uses before and after receiving the hydromorphone. Perhaps this documentation needs to be reviewed weekly by the warehouse puller or facility provider caring for Mrs. Thibodeaux. Finally, I think what might have happened is that if the pt was being given scheduled dosing of dilaudid when she did not have pain, she could have developed a hyperanalgesic effect called Opioid-induced hyperalgesia (OIH). OIH is a state of nociceptive sensitization caused by exposure to opioids. The condition is characterized by a paradoxical response whereby a patient receiving opioids for the treatment of pain could actually become more sensitive to certain painful stimuli. Opiate Hypersensitivity is caused by excessive amounts of an active metabolite of the hydromorphone (or other opioid ) that excites the nerves and causes pain, rather than causing pain relief. The appropriate treatment is to stop the offending opiate and reduce the total pain medicine (by one third or one half), then in 24-48 hours, restart a much lower dose of a different opiate for break-through pain. This is NOT an easy syndrome to diagnose in a facility or in an ED. It usually gets picked up in an inpatient hospice or hospital setting where a provider trained in pain management has experience with recognizing and diagnosing this syndrome. In this case, the hospital medical staff correctly stopped all hydromorphone , left the fentanyl patch in place and a few days later, Mrs. Thibodeaux is more alert and states she has no pain, even with walking. She reports she was having terrible pain in her hip and throughout her body in the days prior to admission. On discharge, what to do? 1. I recommend continuing the fentanyl patch at 50mcg/hr, change patch q 3 days. 2. Allow a prescription of breakthrough pain medicine in the form of: hydrocodone/APAP (5/325) one by mouth q 3 hours PRN breakthrough pain, limit of 3 pills in a 24 hour period. Oral Hydrocodone is 1/5 the potency of oral hydromorphone, and is an opiate with a different chemical structure. 3. Carefully monitor symptoms and signs of increasing pain, and try to evaluate where the pain is located, the time of pain sensation (sharp, dull, tingling, etc). 4. Enlist the help of a pain clinic provider to manage Mrs. Thibodeaux's chronic pain on outpatient basis. 5. Continue gabapentin and Cymbalta as written. These two medications address neuropathic pain via different non-opiate mechanisms. 6. I agree with CM decision to refer this case to [facility] line with [facility] for further evaluation. It may result in ways to help to educate facility staff more about safety issues with opiates and specifically about OIH as a possible diagnosis that can be a rare and difficult diagnosis in their geriatric chronic pain patients. Thank you for this referral, Dr. Gusman. Palliative Care will sign off Mrs. Thibodeaux'christina case today. Please let us know if you need our help again. Problems: Resuscitation Status Resuscitation Status: CPR: Attempt Resuscitation POLST Updates/Changes Previous POLST?: No POLST Review Outcome: No Change . Pain: Moderate Pt History History of Present Illness Patient is a 75 year old female with a history of COPD, CHF, asthma and diabetes who presents to the ED via EMS initially due to an altered mental status. Per EMS, [facility] caregivers told them the patient was in her usual state of health until 11 AM on 08/05/2016 when a caregiver found her on the toilet confused. The patient is on a fentanyl patch and had just received her dose of Dilaudid as well. Patient has chronic pain treated with opiate pain medications which are administered by [facility] staff. They consist of a fentanyl patch and prn dilaudid. When EMS arrived, she was found with low O2 sats. After a nebulizer treatment and 1mg of Narcan, her sats improved and she was able to talk to medics. During that time, the patient reported a productive cough with bloody sputum for the past couple of days. Medics also noted she was febrile, diaphoretic and having tremors even before the Narcan. She was then placed on BiPAP and prior to arrival to ED, she vomited into the mask and had vomited into the mask. Patient was hospitalized in May 2016 for similar symptoms of AMS and COPD exacerbation. Her past medical history significant for chronic pain, type II diabetes mellitus , paroxysmal atrial fibrillation, hypothyroidism, and COPD. In the emergency department initial vitals were temperature 36.9c, pulse 103, respiratory rate 23, blood pressure 107/85, O2 sats of 90% on nonrebreather. Repeat vitals showed a temperature of 38.5 Celsius. Initial laboratory results showed a WBC of 18 with left shift, hemoglobin 12.6, hematocrit 42.8, and platelets of 665. PT 24.5, INR 2.25. Glucose was 130. Troponin < 0.010. Lactic acid 1.9. Urinalysis shows no concerning abnormality. EKG showed sinus rhythm, first-degree AV block, and right bundle branch block. Chest x-ray showed no acute disease. Brain CT showed no acute intracranial abnormality, cerebral volume loss and chronic microvascular ischemic changes. Blood cultures are pending. Hospital Course: Pt admitted 08/05 and initially treated empirically for likely aspiration pneumonia and her opiate medication hydromorphone was stopped for suspicion that her oversedation was likely opiate induced. She has rapidly returned to her baseline mental status and is able to speak for herself and participate interviews. She was participating in PT and able to get to [facility] and back earlier today. She was only briefly on biPaP, then NRB mask until 2pm on day of admission, then NC oxygen, and is on room air today. Past Medical History Significant PMH Noted: COPD Atrial fibrillation on chronic anticoagulation Diabetes mellitus type II Obstructive sleep apnea Neuropathic pain secondary to diabetes Right hip osteoarthritis Polyneuropathy Last echocardiogram on 10/16/2015: Left ventricular systolic function normal with EF of 60-65%. Left ventricular wall thickness borderline increased and diastolic parameters indicate normal left ventricular diastolic function and normal filling pressures. Right ventricle moderately dilated and right ventricular systolic function mildly reduced cyny-eh-rzirrwad pulmonary hypertension with right ventricular systolic pressure of 40 mmHg. Surgical History Total hysterectomy Multiple trigger point injections Carpal tunnel release Hip replacement Family History not related to current chronic pain issues addressed Social History Hx Alcohol Use: Yes (occasional 1 glass of wine/week) Hx Substance Use: No Hx Tobacco Use: Yes Smoking Status: Former Smoker Additional Information Patient lives at [facility] in [facility] which is an assisted living facility. Medications Current Medications: Current Medications Naloxone HCl/ Sodium Chloride 505 ml @ 0 mls/hr Q0M PRN IV; Start 08/05/16 at 15 :00; Stop 08/06/16 at 14:37; Status DC Heparin Sodium (Porcine) 5000 unit 5,000 unit Q8 SUBQ Last administered on 08:43; Admin Dose 5,000 UNIT; Start 08/06/16 at 00:30; Stop 08/06/16 at 14: 38; Status DC Sodium Chloride 1,000 ml @ 75 mls/hr [id number] IV Last administered on 08/06/16 21:29; Admin Dose 75 MLS/HR; Start 08/05/16 at 16:34 Ondansetron HCl 4 to 8 mg Q4H PRN IVPUSH Last administered on 08/06/16 23:35; Admin Dose 8 MG; Start 08/05/16 at 16:35 Polyethylene Glycol 17 gm DAILY PRN PO; Start 08/05/16 at 16:35 Acetaminophen 975 mg Q6H PRN PO; Start 08/05/16 at 16:35 Insulin Human Lispro [facility]HS SUBQ; Start 08/05/16 at 22:00 Pharmacy Consult 1 ea DAILY@17 XX; Start 08/06/16 at 17:00 Albuterol/ Ipratropium 3 ml Q4 NEB Last administered on 08/06/16 08:19; Admin Dose 3 ML; Start 08/05/16 at 20:30; Stop 08/06/16 at 16:28; Status DC Albuterol 2.5 mg 2.5 mg Q2H PRN NEB; Start 08/05/16 at 18:10; Stop 08/06/16 at 14:02; Status DC Piperacillin Sod/ Tazobactam Sod/ Dextrose/Water 50 ml @ 12.5 mls/hr Q8H IV Last administered on 08/07/16 07:36; Admin Dose 12.5 MLS/HR; Start 08/05/16 at 23:00 Diltiazem HCl 180 mg HS PO Last administered on 08/06/16 21:29; Admin Dose 180 MG; Start 08/06/16 at 21:00 Duloxetine HCl 20 mg HS PO Last administered on 08/06/16 21:30; Admin Dose 20 MG; Start 08/06/16 at 21:00 Levothyroxine Sodium 25 mcg DAILY PO Last administered on 08/07/16 07:42; Admin Dose 25 MCG; Start 08/07/16 at 08:30 Lisinopril 2.5 mg DAILY PO Last administered on 08/07/16 07:42; Admin Dose 2.5 MG; Start 08/07/16 at 08:30 Montelukast Sodium 10 mg HS PO Last administered on 08/06/16 21:30; Admin Dose 10 MG; Start 08/06/16 at 21:00 Albuterol 2.5 mg Q4H PRN NEB; Start 08/06/16 at 14:05 Fentanyl 1 patch Q3D TOPICAL Last administered on 08/06/16 18:04; Admin Dose 1 PATCH; Start 08/06/16 at 14:35 Warfarin Sodium 5 mg DAILY@17 PO Last administered on 08/06/16 18:23; Admin Dose 5 MG; Start 08/06/16 at 17:00 Albuterol/ Ipratropium 3 ml Q4 PRN NEB; Start 08/06/16 at 16:28 Scheduled Albuterol/Ipratropium (Combivent Respimat Inhal Bandy) 120 Spr/4 Gm Inhaler 1 PUFF IH QID Bacitracin (Bacitracin Ointment) 28.4 Gm Oint...g. 1 APPLIC TP DAILY apply to rt.toe ulcer Diltiazem ER (Diltiazem ER) 180 Mg Cap.er.24h 180 MG PO HS Duloxetine (Duloxetine) 20 Mg Capsule.dr 20 MG PO HS Fentanyl 50 mcg/hr Patch (Fentanyl 50 mcg/hr Patch) 50 mcg/hr Patch.td72 1 PATCH TRANSDERM Q3D Gabapentin (Gabapentin) 300 Mg Capsule 300 MG PO TID Hydromorphone (Hydromorphone) 4 Mg Tablet 4 MG PO Q4H Levothyroxine (Levothyroxine) 50 Mcg Tablet 25 MCG PO DAILY Lisinopril (Lisinopril) 5 Mg Tablet 2.5 MG PO DAILY Metformin (Metformin) 500 Mg Tablet 500 MG PO DAILY Montelukast (Montelukast) 10 Mg Tablet 10 MG PO HS Trazodone (Trazodone) 150 Mg Tablet 300 MG PO HS Warfarin Sodium (Warfarin Sodium) 5 Mg Tablet 5 MG PO DAILY Scheduled PRN Albuterol HFA (Proair HFA) 8.5 Gm Hfa.aer.ad 2 PUFFS INHALATION Q4H PRN PRN For Shortness of Breath Albuterol Sulfate (Ventolin HFA Inhaler) 200 Puff/18 Gm Inhaler 2 PUFF INH Q2H PRN PRN For Shortness of Breath Docusate Sodium (Colace) 100 Mg Capsule 100 MG PO BID PRN PRN For Constipation Nystatin (Nystatin) 15 Gm Powder 1 APPLIC TOPICAL TID PRN PRN RASH Polyethylene Glycol 3350 (Miralax) 17 Gm Powd.pack 17 GM PO DAILY PRN PRN For Constipation diphenhydrAMINE HCl (Benadryl) 25 Mg Capsule 25 MG PO QID PRN PRN For Itching Objective Findings Exam Vital Sign - Last Date Time Temp Pulse Resp B/P Pulse Ox O2 Delivery O2 Flow Rate FiO2 08/07/16 07:58 72 08/07/16 07:27 37.1 19 147/65 93 Room Air 08/06/16 16:35 1.00 08/06/16 08:45 95 Intake and Output 08/06/16 08/06/16 08/07/16 Cumulative From/Thru 15:00 23:00 07:00 08/05/16 12:19 - 08/07/16 05:29 Intake Total 550 ml 546 ml 3018 ml Output Total 2000 ml 3150 ml Balance -1450 ml 546 ml -132 ml Intake Oral 550 ml 910 ml IV Total 546 ml 2108 ml Output Urine Total 2000 ml 3150 ml # Bowel Movements 1 1 General: Alert/Oriented x3 (interactive, good eye contact) HEENT: Atraumatic, PERRLA, EOMI, Scleral Anicteric Heart: Regular Rate/Rhythm, Normal S1, S2, No Murmurs/Rubs/Gallops Lungs: Clear to Auscultation Abdomen: Benign, Soft, Non Tender Neuro: Exam Intact Extremities: Pulses Palpable x4, Warm, No Edema Lab/Diagnostics Lab and Imaging results reviewed in detail in EMR. Time spent Total time 70 minutes; >50% face to face with patient and/or family, providing counselling regarding plans and recommendations, and in care coordination with his/her medical teams. Estefani Meraz MD Aug 07, 2016 09:29
--- NOTE | 2016-08-07 10:26 | NUR ---
Social Work: Readiness for discharge D: Pt discussed in am rounds. Pt is not medically stable for discharge however is anticipated to be ready for discharge on Wednesday. MICROBIOLOGY DIRECTOR met with the patient at bedside to assess for unmet needs. Pt states she has no concerns about discharge back to [facility]. Pt confirms that [facility] manages her medications. EMR reviewed and discussed with palliative care MD; pt has been admitted twice for possible oversedation of opiate medications administered by facility staff. LEONARDO has made online [facility] report: Confirmation Number: [id number] t/c to [facility] to request bedside assessment for the patient's return. RN on today will notify the director of event sales that the pt will likely be ready for discharge tomorrow. She will call MICROBIOLOGY DIRECTOR back with a time that they intend to come for bedside assessment A: pt who lives at [facility]. P: Anticipate pt to return to [facility] pending bedside assessment; MICROBIOLOGY DIRECTOR to continue to follow and assist with discharge planning. LEONARDO Chapman Addendum: 08/07/16 at 1442 by PAULA NAVARRO SS LEONARDO left another message requesting bedside assessment from [facility] in anticipation for pt's return tomorrow. Still no return phone call. Addendum: 08/07/16 at 1501 by PAULA JAY LEONARDO spoke with locker operator at [facility]. She is requesting clinicals from today. She states that she would like to review these documents before coming to see the patient. LEONARDO informed her that the only documentation is per palliative care which outlines a pain management course. This was faxed to [phone]. She will contact LEONARDO once she reviews this. Addendum: 08/07/16 at 1705 by PAULA JAY LEONARDO has not heard from [facility] locker operator. MICROBIOLOGY DIRECTOR has left multiple messages for her requesting return phone call to determine if she will be coming to complete a bedside assessment. LEONARDO has received no correspondence. She is aware that the pt is likely to discharge tomorrow. Addendum: 08/07/16 at 1748 by PAULA NAVARRO SS LEONARDO received return phone call from locker operator, Safia ([phone]) She states that she has reviewed pt's clinicals from today. She still has concerns about the patient's pain management regime and states that her facility does not have licensed RNs on staff who can complete pain assessments, as suggested in palliative care note. Patient's medications are administered by [facility] who cannot provide this service. At this time, she cannot accept the patient back without further communication about how to control patient's pain. LEONARDO informed her that she would inform attending MD at am rounds. She is available for phone consult over the weekend.
--- NOTE | 2016-08-07 10:34 | NUR ---
Palliative care note D/A: Case discussed with nancy Bernardo. She has read PC note detailing possible concerns about medications. She also notes that pt has been admitted twice now with AMS (previous admit start of June 2016) . She is considering possible referral to [facility] line with [facility]. This worker concurs. Case discussed with Cata PATTERSON who will notify Dr. Meraz. P: Palliative care to follow as needed. Amparo RENNER, CCM
[2016-08-07] MEDS: Albuterol-Ipratropium 3 mL Inhalation Solution NEB PRN ×2 (11:17→20:00)
--- NOTE | 2016-08-07 13:52 | NUR ---
Shortness of breath/activity Patient appeared to be under strong impress that she would be discharge home today. Consulted with MD and patient will not be discharge home as of yet. Patient t remain in house for another 24-48h WBC up form yesterday at 21.9, patient continued to require significant assist in transferring from bed to a commode/chair. During activity patient became short of breath and oxygen saturation decreased to 86-88% ranges on RA. Patient was placed on 2 L NC O2 with oxygen increasing to 91-94%- MD aware and ordered PT evaluation or activity tolerance.
--- NOTE | 2016-08-07 16:19 | PCM.PNMED ---
Subjective Date of Service Aug 07, 2016 Subjective Thelma Thibodeaux states that she is very anxious to get out of the hospital, she denies any pain at this time and expresses frustration at the extent of her opiate analgesia administration and that it may have put her in danger. No significant overnight events Comprehensive ROS negative except as outlined above. Exam Vital Signs Vital Sign - Last Date Time Temp Pulse Resp B/P Pulse Ox O2 Delivery O2 Flow Rate FiO2 08/07/16 16:00 37.0 67 18 120/50 98 Nasal Cannula 1.00 08/06/16 08:45 95 Intake and Output 08/06/16 08/06/16 08/07/16 Cumulative From/Thru 15:00 23:00 07:00 08/05/16 12:19 - 08/07/16 05:29 Intake Total 550 ml 546 ml 3018 ml Output Total 2000 ml 3150 ml Balance -1450 ml 546 ml -132 ml Intake Oral 550 ml 910 ml IV Total 546 ml 2108 ml Output Urine Total 2000 ml 3150 ml # Bowel Movements 1 1 Exam Gen: A/O x3 pleasant cooperative woman in mild acute distress due to anxiety about further hospitalization Neck: Supple, non tender, no thyromegaly, no JVD, Full ROM HEENT: PERRL, EOMI, no scleral icterus, multiple missing teeth CV: RRR, no murmurs rubs or gallops Resp: Mildly coarse breath sounds, no wheezing rales or rhonchi Abd: Soft, non tender, no organomegaly, BS + 4Q Extr: well healed surgical scar on right hip, no clubbing cyanosis or edema Neuro: CN 2-12 grossly intact, no focal neurologic deficit Psych: Patient very anxious to go home, needs re-directing from nursing that she is not imminently leaving IVs and Medications IV Fluids 75 ml NS delivered with IV medication Medications Reviewed: Medications were reviewed in detail Lab and Diagnostics Item Value Date Time Red Blood Count 5.77 mil/mm3 H 08/07/16 0400 Mean Corpuscular Volume 75.2 fL L 08/07/16 0400 Mean Corpuscular Hemoglobin 23.6 pg L 08/07/16 0400 Mean Corpuscular Hemoglobin Concent 31.3 % L 08/07/16 0400 Red Cell Distribution Width 19.8 % H 08/07/16 0400 Neutrophils (%) (Auto) 88.0 % H 08/07/16 0400 Lymphocytes (%) (Auto) 3.2 % L 08/07/16 0400 Monocytes (%) (Auto) 7.8 % 08/07/16 0400 Eosinophils (%) (Auto) 0.1 % 08/07/16 0400 Basophils (%) (Auto) 0.4 % 08/07/16 0400 Estimat Glomerular Filtration Rate 236 mL/min 08/07/16 040 Calcium Level 8.9 mg/dL 08/07/16399 Procalcitonin 0.05 ng/mL 08/07/16399 Prothrombin Time 25.4 sec H 08/07/16399 Prothromb Time International Ratio 2.33 ratio 08/07/16399 Urine Legionella pneumophilia Ag Negative 08/05/16 1316 Result Diagram: 08/07/1639908/07/16399 Microbiology Blood culture no growth at 48 hours S. Pneumo urine antigen negative Nasal MRSA negative X-Rays, CTs and MRIs Chest x-ray on 08/05/2016: IMPRESSION: No acute disease. Dictated by: Hood Angeles M.D. on 08/05/2016 at 13:[address] on 08/05/2016: IMPRESSION: 1. No acute intracranial abnormalities. 2. Cerebral volume loss and chronic microvascular ischemic changes. Dictated by: Christa Mendoza M.D. on 08/05/2016 at 13:48 . 12-lead ECG EKG showed sinus rhythm with rate of 80, prolonged MD interval, right bundle branch block. This was relatively unchanged from EKG on 06/13/2016. Assessment & Plan This is a 75-year-old female with past medical history significant for chronic pain, atrial fibrillation on anticoagulation with therapeutic INR, and COPD who presented with altered mental status secondary to likely opiate overdose. Patient improving post Narcan. Acute encephalopathy, present on admission, improving: -Likely secondary to opiate overdose. -Patient received several Narcan doses in ER. -Urine tox screen positive for opiates Opioid/narcotic dependence is associated with continuous use of fentanyl patch, present on admission, ongoing: -Patient is improved. She has had altered mental status twice on fentanyl patch. -Palliative care consult ordered. -Per palliative care reducing Fentanyl patch to 50 mcg, DC Dilaudid, substituting Oxycodone 5-325 Q8 prn for breakthrough. Chronic musculoskeletal pain, present on admission, ongoing: -Pain control with Fentanyl patch and Oxycodone as above -Admitting physician was able to speak with her primary care provider, Dr. Pepper of [facility], who stated that she has had increasing pain in her hip over the last several months that has required escalation in opiate pain medications. -Monitor for signs of withdrawal. Likely aspiration pneumonia, present on admission, ongoing: -Patient aspirated while on BiPAP. WBC 18. Febrile temperature of 38.5 Celsius. Procalcitonin .07. Chest xray showed no acute disease. -Some reports of patient vomiting while on Bpap -Zosyn continued. Chronic thrombocytosis, present admission, ongoing: -On admits platelets were 665. On 06/13/2016 platelets were 724. -Unknown etiology. Atrial fibrillation on chronic anticoagulation, present admission, ongoing: -Patient on anticoagulation with warfarin and INR is 2.25. -Continue warfarin. Continue diltiazem. Diabetes mellitus type II, present admission, ongoing: -On admit glucose 130 -A1c 5.8. -Humalog low-dose correctional. COPD, present admission, ongoing: -Duonebs every 4 hours scheduled, albuterol as needed. Diabetic neuropathy, present admission, ongoing: -Continue gabapentin when mental status improves. Hypothyroidism, present on admission, ongoing: -TSH, free t4 within normal limits. -Continue levothyroxine. Depression/anxiety, present admission: -Continue duloxetine 20 mg. Disposition: Patient will likely be appropriate for DC tomorrow, PT is recommending SNF which will be offered and likely declined by the patient Pain Evaluation: Adequate Pain Control VTE Prophylaxis: Theraputic Anticoag with Warfarin VTE Mechanical Devices: Intermittant Pneumatic CD Resuscitation Status: CPR: Attempt Resuscitation Attending Statement The patient was seen and examined together with Dr. Gusman on 08/07/2016 and I agree with the history, exam and plan as outlined in the note above. . Brad Gusman DO Aug 07, 2016 16:19 Juan Dean MD Aug 07, 2016 16:57
--- NOTE | 2016-08-07 17:54 | NUR ---
Pain/activity Initially this morning patient complained of 5/10 right should/chest pain which was aggravated with taking deep breaths. Patient was medicated with single dose of IV toradol 15mg this brought her pain to 3-4/10. Patient was given a PO dose of Ultram 25mg X1- this brought her pain to 0-1/10. Patient was able to ambulate to the bathroom well with stand bay assist and this evening patient ambulated around [facility] hallways one time around. She tolerated the activity well and remained in a chair afterwards. Patient did not have any complaints of pain with and following this activity- continue assessment. Addendum: 08/07/16 at 1756 by JASON CASTANO RN Please disregard this note- note above was intended for different painting
[2016-08-07] MEDS: Diltiazem CD 180 mg ER24 Capsule PO SCH (20:52)
[2016-08-07] MEDS: DULoxetine 20 mg DR Capsule PO SCH (20:52)
[2016-08-07] MEDS ORDERED: oxyCODONE-Acetamin 5-325 mg Tablet PO PRN (22:20)
[2016-08-08 03:38] LABS: INR 2.8 ratio
[2016-08-08 03:49] LABS: BASOPHILS % (AUTO) 0.9 % (0-3); MONOCYTES % (AUTO) 11.9 % (4-12); Mean Corpuscular Hemoglobin 23.7 pg (27.0-35.0); Mean Corpuscular Volume 74.6 fL (81-100); NEUTROPHILS % (AUTO) 68.6 % (40-74); Platelet Count 640 bil/L (150-400)
[2016-08-08 04:10] LABS: Magnesium 1.9 mg/dL (1.6-2.6)
--- NOTE | 2016-08-08 05:18 | NUR ---
Noc Activity Pt denies chest pain, sob, n/v or abd discomfort. Reports of right sided hip pain which has been relieved by prn percocet. Hourly rounding in effect. HS meds administered as scheduled. VSS and has been afebrile throughout the night.
[2016-08-08 06:11] VITALS: PULSE 62
--- NOTE | 2016-08-08 07:43 | DRSVH ---
PROCEDURE: X-RAY CHEST ONE VIEW, PORTABLE ([id number]) INDICATIONS: 75 year-old female with possible pneumonia. TECHNIQUE: One view of the chest was acquired. COMPARISON: [facility], CR, XR CHEST 1VW (PORTABLE), 08/05/2016, 12:26. [facility], CR, XR CHEST 1VW (PORTABLE), 06/13/2016, 15:20. [facility], CR, XR CHEST 1V PORT ABLE, 03/20/2016, 12:12 PM. FINDINGS: Surgical changes and devices: None. Lungs and pleura: No pleural effusions or pneumothorax. Lungs are clear. Mediastinum: Mediastinal contours appear normal. Heart size is normal. There is aortic atheroscler osis. Bones and chest wall: No suspicious bony lesions. Overlying soft tissues appear unremarkable. IMPRESSION: No radiographic evidence for pneumonia. Dictated by: Bakari Agarwal M.D. on 08/08/2016 at 7:41 Approved by: Bakari Agarwal M.D. on 08/08/2016 at 7:42
[2016-08-08 08:00] VITALS: PULSE 68
[2016-08-08] MEDS: Insulin LISPRO 300 Unit/3 mL Inj SUBQ SCH ×2 (08:00→12:00)
[2016-08-08 09:02] VITALS: BP 125/77; PULSE 77; RESP 18; O2SAT 92
[2016-08-08] MEDS: Piperacillin-Tazo 3.375 Gm Inj 3.375 GM in Dextrose 5% Minibag Plus 50 ML IV SCH (09:13)
[2016-08-08] MEDS ORDERED: Nystatin 100,000 Unit/Gm 15 Gm Powder TOPICAL ONE (09:40)
--- NOTE | 2016-08-08 09:41 | PCM.PHAPRO ---
Progress Date of Service: Aug 08, 2016 Warfarin dosing INR = 2.80, hct = 35.6, plts = 640 Date Aug 06Aug 07-Aug 08 INR 2.25 2.65 2.33 2.80 INR change 0.4 -0.32 0.47 Warf Dose HOLD 5MG 5MG 5MG Sonia Brand PharmD Aug 08, 2016 09:41
[2016-08-08] MEDS: 0.9% Sodium Chloride 1,000 ML IV SCH (11:14)
[2016-08-08] MEDS ORDERED: OXYC1TAB24 PO (12:13)
--- NOTE | 2016-08-08 12:16 | PCM.DIMED ---
Brad Gusman DO 08/08/16 1216: Discharge Instructions Date of Service Aug 08, 2016 Dates of Hospitalization Aug 05, 2016 at 16:28 Discharge Diagnosis Discharge Diagnosis Acute encephalopathy Opioid/narcotic dependence is associated with continuous use of fentanyl patch Chronic musculoskeletal pain Chronic thrombocytosis Atrial fibrillation on chronic anticoagulation Diabetes mellitus type I COPD Diabetic neuropathy Hypothyroidism Depression/anxiety . Diet Discharge Diet: Diabetic Activity Discharge Activity: Home Health Phyical Therapy Call your provider Call your provider for: Fever or Chills, Shortness of breath, Bleeding, Chest pain, Vomitting, Excessive diarrhea, Weakness (unilateral) Patient Instructions Follow-up plan Please follow up with Dr. Pepper your primary care provider within 1 week. If you are unable to do so please follow up with whomever will be your primary care provider in [place] as soon as possible. Follow-up Provider: Jasen Pepper MD Follow-up with PCP in: 1 week Juan Dean MD 08/08/16 1444: Discharge Instructions Attending's Statement The patient was seen and examined together with Dr. Gusman on 08/08/2016 and I agree with the history, exam and plan as outlined in the note above. . Brad Gusman DO Aug 08, 2016 12:16 Juan Dean MD Aug 08, 2016 14:44
[2016-08-08 12:24] VITALS: BP 128/69; PULSE 58; RESP 18; O2SAT 96
--- NOTE | 2016-08-08 13:30 | NUR ---
Discharge 0917 - Called her Sister per her request and informed her of the room change and that she would likely be discharging in the afternoon. 1000 - Discussed her care with Dr. Gusman, Dr. Dean, and the rest of the multidisciplinary care team during morning rounds. Asked for Nystatin powder as her groin had some redness. It was ordered and administered. 1310 - Called [facility] and gave a [id number] report to Karrie. Confirmed with her and Dr. Gusman that she did not need to have a facility assessment before her discharge. They said that the director would assess her at the facility. 1345 - She discharged at this time. Discontinued her IV, telemetry, and Fentanyl patch intact. Discussed and gave her the discharge paperwork to give to the nursing staff at [facility] (prescription, care notes, instructions). She took all her belongings with her. She was set up with an O2 tank for the ride home by Respiratory Therapy. Her sister came to drive her. Silvia, the ANALOG DESIGN ENGINEER took her down in a wheelchair to the car.
--- NOTE | 2016-08-08 14:51 | PCM.DC.MED ---
Discharge Summary Date of Service Aug 08, 2016 Dates of Hospitalization Date of Hospital Admission Aug 05, 2016 at 16:28 Date of Discharge: Aug 08, 2016 Providers: Admitting Physician: Juan Dean MD Primary Care Physician: Jasen Pepper MD Attending Physician: Juan Dean MD Diagnosis at Time of Discharge Diagnosis at Time of Discharge Acute encephalopathy Opioid/narcotic dependence is associated with continuous use of fentanyl patch Chronic musculoskeletal pain Chronic thrombocytosis Atrial fibrillation on chronic anticoagulation Diabetes mellitus type I COPD Diabetic neuropathy Hypothyroidism Depression/anxiety . Consultations Palliative care with Dr. Meraz Procedures XRay, CTs & MRIs Chest x-ray on 08/05/2016: IMPRESSION: No acute disease. Dictated by: Hood Angeles M.D. on 08/05/2016 at 13:[address] on 08/05/2016: IMPRESSION: 1. No acute intracranial abnormalities. 2. Cerebral volume loss and chronic microvascular ischemic changes. Dictated by: Christa Mendoza M.D. on 08/05/2016 at 13:48 . ECG 12 Lead EKG showed sinus rhythm with rate of 80, prolonged IN interval, right bundle branch block. This was relatively unchanged from EKG on 06/13/2016. Brief History Taken from History and Physical composed by Dr. Marie on 08/05/16 Patient is a 75 year old female with a history of COPD, CHF, asthma and diabetes who presents to the ED via EMS initially due to an altered mental status. Per EMS, [facility] caregivers told them the patient was in her usual state of health until 11 AM on 08/05/2016 when a caregiver found her on the toilet confused. The patient is on a fentanyl patch and had just received her dose of Dilaudid as well. Patient has chronic pain treated with opiate pain medications which are administered by [facility] staff. They consist of a fentanyl patch and prn dilaudid. When EMS arrived, she was found with low O2 sats. After a nebulizer treatment and 1mg of Narcan, her sats improved and she was able to talk to medics. During that time, the patient reported a productive cough with bloody sputum for the past couple of days. Medics also noted she was febrile, diaphoretic and having tremors even before the Narcan. She was then placed on BiPAP and prior to arrival to ED, she vomited into the mask and had vomited into the mask. Patient was hospitalized in May 2016 for similar symptoms of AMS and COPD exacerbation. Her past medical history significant for chronic pain, type II diabetes mellitus , paroxysmal atrial fibrillation, hypothyroidism, and COPD. In the emergency department initial vitals were temperature 36.9c, pulse 103, respiratory rate 23, blood pressure 107/85, O2 sats of 90% on nonrebreather. Repeat vitals showed a temperature of 38.5 Celsius. Initial laboratory results showed a WBC of 18 with left shift, hemoglobin 12.6, hematocrit 42.8, and platelets of 665. PT 24.5, INR 2.25. Glucose was 130. Troponin < 0.010. Lactic acid 1.9. Urinalysis shows no concerning abnormality. EKG showed sinus rhythm, first-degree AV block, and right bundle branch block. Chest x-ray showed no acute disease. Brain CT showed no acute intracranial abnormality, cerebral volume loss and chronic microvascular ischemic changes. Blood cultures are pending. . Hospital Course This is a 75-year-old female with past medical history significant for chronic pain, atrial fibrillation on anticoagulation with therapeutic INR, and COPD who presented with altered mental status secondary to likely opiate overdose. Patient improved post Narcan. The patient progressively improved her mental status during the first 48 hours of admission. Per palliative recommendation she was transitioned to an analgesic regimen consisting of Fentanyl 50 mcg, and Percocet 5-325 Q8 PRN, despite this regimen being substantially less intense that her what she had arrived with the patient actually stated that her pain was much better controlled. She was discharged in good condition, ambulating at a level consistent with her baseline, and her pain was well controlled without neurologic sequelae. Acute encephalopathy, present on admission, improving: -Likely secondary to opiate overdose. -Patient received several Narcan doses in ER. -Urine tox screen positive for opiates Opioid/narcotic dependence is associated with continuous use of fentanyl patch, present on admission, ongoing: -Patient is improved. She has had altered mental status twice on fentanyl patch. -Palliative care consult ordered. -Per palliative care reducing Fentanyl patch to 50 mcg, DC Dilaudid, substituting Oxycodone 5-325 Q8 prn for breakthrough. -This regimen has resulted in much better pain control per patient, without observable deficit in mentation Chronic musculoskeletal pain, present on admission, ongoing: -Pain control with Fentanyl patch and Oxycodone as above -Admitting physician was able to speak with her primary care provider, Dr. Pepper of [facility], who stated that she has had increasing pain in her hip over the last several months that has required escalation in opiate pain medications. -Monitored for signs of withdrawal. Possible aspiration pneumonia, present on admission, ongoing: -Patient aspirated while on BiPAP. WBC 18. Febrile temperature of 38.5 Celsius. Procalcitonin .07. Chest xray showed no acute disease. -Zosyn continued, DC upon discharge -Patient was non septic, afebrile, had a transient leukocytosis trending back towards normal, essentially negative procalc, and no pulmonary symptoms which together did not suggest aspiration pneumonia Chronic thrombocytosis, present admission, ongoing: -On admits platelets were 665. -Unknown etiology. Atrial fibrillation on chronic anticoagulation, present admission, ongoing: -Patient on anticoagulation with warfarin and INR is 2.25. -Continue warfarin. Continue diltiazem. Diabetes mellitus type II, present admission, ongoing: -On admit glucose 130 -A1c 5.8. -Humalog low-dose correctional. COPD, present admission, ongoing: -Duonebs every 4 hours scheduled, albuterol as needed. Diabetic neuropathy, present admission, ongoing: -Continued gabapentin Hypothyroidism, present on admission, ongoing: -TSH, free t4 within normal limits. -Continued levothyroxine. Depression/anxiety, present admission: -Continued duloxetine 20 mg. Exam Vital Signs (Last) Date Time Temp Pulse Resp B/P Pulse Ox O2 Delivery O2 Flow Rate FiO2 08/08/16 12:24 37.0 58 18 128/69 96 Room Air 08/07/16 23:31 1.00 08/06/16 08:45 95 Exam Gen: A/O x3 pleasant cooperative woman in NAD Neck: Supple, non tender, no thyromegaly, no JVD, Full ROM HEENT: PERRL, EOMI, no scleral icterus, multiple missing teeth CV: RRR, no murmurs rubs or gallops Resp: Mildly coarse breath sounds, no wheezing rales or rhonchi Abd: Soft, non tender, no organomegaly, BS + 4Q Extr: well healed surgical scar on right hip, no clubbing cyanosis or edema Neuro: CN 2-12 grossly intact, no focal neurologic deficit Psych: appropriate mood and affect Test 08/05/16 12:30 08/05/16 12:33 08/05/16 12:40 08/05/16 13:16 Troponin T < 0.010ug/L (0.0-0.011) Lipase 10U/L (13-60) Hemoglobin A1c 5.8% (4.8-5.6) Thyroid Stimulating Hormone (TSH) 2.340uIU/mL (0.450-4.500) Free Thyroxine 1.04ng/dL (0.82-1.77) Lactic Acid Level 1.9mmol/L (0.4-2.0) Urine Opiates Screen Positive Urine Methadone Screen Negative Urine Barbiturates Screen Negative Urine Amphetamines Screen Negative Urine Benzodiazepines Screen Negative Urine Cocaine Metabolite Screen Negative Urine Cannabinoids Screen Negative Urine Legionella pneumophilia Ag Negative (Negative) Test 08/05/16 13:31 08/06/16 03:24 08/08/16 02:50 Urine Color Yellow (YELLOW) Urine Appearance Hazy (CLEAR,HAZY) Urine pH 7.0 (5.0-8.0) Urine Specific [place] 1.015 (1.003-1.035) Urine Protein Tracemg/dL (NEG,TRACE) Urine Glucose (UA) Negativemg/dL (NEGATIVE) Urine Ketones Negativemg/dL (NEGATIVE) Urine Occult Blood Negative (NEGATIVE) Urine Nitrite Negative (NEGATIVE) Urine Bilirubin Negative (NEGATIVE) Urine Urobilinogen Normalmg/dL (NORMAL) Urine Leukocyte Esterase Negative (NEGATIVE) Urine RBC 0-2/hpf (0-2) Urine WBC 0-5/hpf (0-5) Urine Epithelial Cells Occasional/hpf (NONE-MOD) Urine Crystals None seen (NONE SEEN) Urine Bacteria Few/hpf (NONE-FEW) Urine Hyaline Casts Occasional/lpf (NONE) Urine Granular Casts None seen (NONE SEEN) Urine Waxy Casts None seen (NONE SEEN) Urine Red Blood Cell Casts None seen (NONE SEEN) Urine White Blood Cell Casts None seen (NONE SEEN) Urine Mucus Present (None Seen) Urine Trichomonas None seen (NONE SEEN) Urine Yeast None (NONE SEEN) Urinalysis Comment None Urine Culture Reflexed Not indicated Hematology Comments White Blood Count 13.2th/mm3 (3.8-10.1) Red Blood Count 4.77mil/mm3 (3.90-5.20) Hemoglobin 11.3g/dL (12.0-15.6) Hematocrit 35.6% (35.0-46.0) Mean Corpuscular Volume 74.6fL (81-100) Mean Corpuscular Hemoglobin 23.7pg (27.0-35.0) Mean Corpuscular Hemoglobin Concent 31.7% (32.0-37.0) Red Cell Distribution Width 19.6% (12.3-15.4) Platelet Count 640bil/L (150-400) Neutrophils (%) (Auto) 68.6% (40-74) Lymphocytes (%) (Auto) 16.2% (14-46) Monocytes (%) (Auto) 11.9% (4-12) Eosinophils (%) (Auto) 2.0% (0-5) Basophils (%) (Auto) 0.9% (0-3) Prothrombin Time 30.6sec (8.1-12.5) Prothromb Time International Ratio 2.80ratio Sodium Level 139mEq/L (134-144) Potassium Level 4.1mEq/L (3.5-5.2) Chloride Level 102mEq/L (97-108) Carbon Dioxide Level 25mmol/L (18-29) Blood Urea Nitrogen 15mg/dL (8-27) Creatinine 0.43mg/dL (0.57-1.00) Estimat Glomerular Filtration Rate 204mL/min (>59) Glucose Level 109mg/dL (60-99) Calcium Level 8.4mg/dL (8.5-10.1) Phosphorus Level 3.0mg/dL (2.5-4.9) Magnesium Level 1.9mg/dL (1.6-2.6) Total Bilirubin 0.4mg/dL (0.0-1.2) Aspartate Amino Transf (AST/SGOT) 11U/L (0-50) Alanine Aminotransferase (ALT/SGPT) 5U/L (0-32) Alkaline Phosphatase 81U/L (25-165) Total Protein 5.9g/dL (6.4-8.4) Albumin 2.9g/dL (3.4-5.0) Procalcitonin 0.05ng/mL (0.00-0.08) Microbiology Results Blood culture no growth at 48 hours S. Pneumo urine antigen negative Nasal MRSA negative Discharge Medications Discharge Medications Albuterol/Ipratropium (Combivent Respimat Inhal [place]) 120 Spr/4 Gm Inhaler 1 PUFF IH QID (Reported) Bacitracin (Bacitracin Ointment) 28.4 Gm Oint...g. 1 APPLIC TP DAILY (Reported) apply to rt.toe ulcer Diltiazem ER (Diltiazem ER) 180 Mg Cap.er.24h 180 MG PO HS (Reported) Duloxetine (Duloxetine) 20 Mg Capsule.dr 20 MG PO HS (Reported) Fentanyl 50 mcg/hr Patch (Fentanyl 50 mcg/hr Patch) 50 mcg/hr Patch.td72 1 PATCH TRANSDERM Q3D (Reported) Gabapentin (Gabapentin) 300 Mg Capsule 300 MG PO TID (Reported) Levothyroxine (Levothyroxine) 50 Mcg Tablet 25 MCG PO DAILY (Reported) Lisinopril (Lisinopril) 5 Mg Tablet 2.5 MG PO DAILY Prescribed by: CLEO FRANCO MD Metformin (Metformin) 500 Mg Tablet 500 MG PO DAILY (Reported) Montelukast (Montelukast) 10 Mg Tablet 10 MG PO HS (Reported) Trazodone (Trazodone) 150 Mg Tablet 300 MG PO HS (Reported) Warfarin Sodium (Warfarin Sodium) 5 Mg Tablet 5 MG PO DAILY (Reported) As needed Albuterol HFA (Proair HFA) 8.5 Gm Hfa.aer.ad 2 PUFFS INHALATION Q4H PRN PRN For Shortness of Breath (Reported) Albuterol Sulfate (Ventolin HFA Inhaler) 200 Puff/18 Gm Inhaler 2 PUFF INH Q2H PRN PRN For Shortness of Breath (Reported) Docusate Sodium (Colace) 100 Mg Capsule 100 MG PO BID PRN PRN For Constipation ( Reported) Nystatin (Nystatin) 15 Gm Powder 1 APPLIC TOPICAL TID PRN PRN RASH (Reported) Polyethylene Glycol 3350 (Miralax) 17 Gm Powd.pack 17 GM PO DAILY PRN PRN For Constipation (Reported) diphenhydrAMINE HCl (Benadryl) 25 Mg Capsule 25 MG PO QID PRN PRN For Itching ( Reported) oxyCODONE-Acetaminophen 5-325 mg (oxyCODONE-Acetaminophen 5-325 mg) 1 Each Tablet 1 TAB PO Q8 PRN PRN For Pain Prescribed by: ALONDRA GUSMAN DO Followup Plan Disposition: back to [facility] Follow-up plan Please follow up with Dr. Pepper your primary care provider within 1 week. If you are unable to do so please follow up with whomever will be your primary care provider in [place] as soon as possible. Discharge Diet: Diabetic Discharge Activity: Home Health Phyical Therapy Follow-up Provider: Jasen Pepper MD Follow-up with PCP in: 1 week Time spent Greater than 30 minutes was spent in preparation of discharge with greater than 50% of that time dedicated to patient counseling and coordination of care. . Attending Statement The patient was seen and examined together with Dr. Gusman on 08/08/2016 and I agree with the history, exam and plan as outlined in the note above. . copies to: Jasen Pepper MD, David E DO Aug 08, 2016 14:51 Juan Dean MD Aug 09, 2016 19:22
--- NOTE | 2016-08-08 16:18 | NUR ---
Social Work Note: Discharge Data& Assessment: Per pt is medically ready to discharge back to [facility] via POV. SW met with pt and pt family at bedside to confirm discharge plan and assess for any unmet needs. MD and Director Safia spoke to confirm pt medication management plan to ensure appropriate continuation of care. Safia Director from [place] cleared pt to return today. PT cleared pt to return to [facility] with home health services, pt declined explaining she has been successful with outpt PT and would like to continue that. Pt sister and brother in law transporting her back to [place]. Pt and pt family denies any other needs. No other discharge needs identified. Plan: Per pt is medically ready to discharge home to [facility] via POV with outpt PT. Pt and pt family denies any other needs. No other discharge needs identified. LEONARDO Jurado
--- NOTE | 2016-08-10 09:22 | NUR ---
Social Work Note: Post Discharge Phone Call SW received phone call from State reporting Hotline deputy sheriff/investigator Ana ([phone]) who requested updated information on pt. Ana was notified of pt discharge and discharge plan. Ana denies any other needs. No other discharge needs identified. LEONARDO Jurado
== END 2016-08-08 13:55 | DRG 917 ==
LOC: EDBD 12:09 → SED 12:09 → EDUNIT# 12:09 → CCU 16:28 → PCC 08-06 08:42
PROVIDERS: ADMIT Internal Medicine; ATTEND Neuromusculoskeletal Medicine & OMM
PROC: 4A033R1 Measurement of Arterial Saturation, Peripheral, Percutaneous Approach (ICD-10-PCS; principal; 2016-08-05)
DX: T40.2X1A Poisoning by other opioids, accidental (unintentional), initial encounter (principal); G92 Toxic encephalopathy; J69.0 Pneumonitis due to inhalation of food and vomit; F11.20 Opioid dependence, uncomplicated; Z79.01 Long term (current) use of anticoagulants; J44.9 Chronic obstructive pulmonary disease, unspecified; G89.29 Other chronic pain; E11.40 Type 2 diabetes mellitus with diabetic neuropathy, unspecified; I48.0 Paroxysmal atrial fibrillation; Y92.9 Unspecified place or not applicable; D47.3 Essential (hemorrhagic) thrombocythemia; E03.9 Hypothyroidism, unspecified; F41.8 Other specified anxiety disorders; J45.909 Unspecified asthma, uncomplicated; Z79.84 Long term (current) use of oral hypoglycemic drugs; Z51.5 Encounter for palliative care